=== PATIENT | male | born 1950 | race African-American/Black ===

== ENCOUNTER 2017-06-13 21:25 | Emergency (ER) | payer BC, MEDICARE ==
[2017-06-13] MEDS ORDERED: EPINEPHrine 1 MG/10 ML Abboject SYRINGE ONE (22:00)
[2017-06-13 22:14] LABS: Band 2 % (5-11); Hemoglobin 11.9 g/dL (14.0-18.0); Lymphocytes 17 % (21-51); MDiff Complete? YES; Mean Corpuscular HGB CONC 31.2 g/dL (32.0-36.0); Mean Corpuscular Hemoglobin 28.5 pg (27.0-31.0); Mean Corpuscular Volume 91.3 fl (80.0-94.0); Mean Platelet Volume 9.4 fL (7.4-10.4); Monocytes 1 % (0-10); Neutrophil 80 % (42-75); PLT Morphology Comment Appears Adequate; Platelet Count 254 thou/uL (130-400); RBC Distribution Width 16.8 % (11.5-14.5); Red Blood Cell (RBC) Count 4.19 mill/uL (4.70-6.10); White Blood Cell (WBC) Count 6.8 thou/uL (4.8-10.8)
[2017-06-13 22:29] LABS: Troponin I 5.703 ng/mL (< 0.028)
[2017-06-13] MEDS ORDERED: Lidocaine 1% PF 5 ML VIAL ONE (23:01)
[2017-06-13 23:14] LABS: Albumin 3.1 g/dL (3.4-4.8)
--- NOTE | 2017-06-13 23:14 | RAD ---
CHEST ONE VIEW: 06/13/17 HISTORY: 66-year-old male with history of chest pain. Left ICD. Postop midline sternotomy. Cardiomegaly. Right jugular venous catheter with the tip in the distal superior vena cava. No confluent pneumonia or overt edema. IMPRESSION: Cardiomegaly. Right jugular venous catheter. Left ICD. No acute pulmonary parenchymal disease. No pne umothorax or pleural effusion. POS: [facility]
[2017-06-13 23:15] LABS: Chloride 100 mmol/L (98-107); Potassium 3.8 mmol/L (3.5-5.1); Sodium 136 mmol/L (136-145)
[2017-06-13 23:16] LABS: Calcium 8.9 mg/dL (7.8-10.44); Glucose 218 mg/dL (80-115)
[2017-06-13 23:17] LABS: Globulin 5.1 g/dL (2.4-3.5); Protein, Total 8.2 g/dL (5.8-8.1)
[2017-06-13 23:18] LABS: Anion Gap 14 mmol/L (10-20); Bilirubin, Total 0.6 mg/dL (0.2-1.2); Carbon Dioxide 26 mmol/L (23-31)
[2017-06-13 23:19] LABS: Alkaline Phosphatase 101 U/L (40-150)
[2017-06-13 23:20] LABS: Calc. Creatinine Clearance 0 mL/min (70-130); Estimated GFR-MDRD 32
[2017-06-13 23:21] LABS: BUN (Urea Nitrogen) 32 mg/dL (8.4-25.7)
[2017-06-13 23:22] LABS: ALT (SGPT) 20 U/L (8-55); AST (SGOT) 49 U/L (5-34); CK (CPK) 301 U/L (30-200)
[2017-06-14] MEDS ORDERED: Enoxaparin Sodium 100 MG/ML SYRINGE ONE (00:07)
[2017-06-14] MEDS ORDERED: Piperacillin/Tazobactam 4.5 GM VIAL ONE (00:37)
[2017-06-14 03:16] LABS: Bilirubin Negative (Negative); Blood, Urine Negative (Negative); Clarity CLOUDY (Clear); Glucose, Urine (Dipstick) Negative (Negative); Leukocyte Negative (Negative); Nitrite Negative (Negative); Protein, Urine (Dipstick) 100 mg/dL (Neg-Trace); Specific Gravity, Urine 1.013 (1.002-1.036)
[2017-06-14 03:19] LABS: Bacteria/HPF None Seen HPF (None Seen); Hyaline Casts/LPF 7-10 HYALINE CAST LPF (0-3 Hyaline); Pathc Cast-AUWi Flag 2.32 (0-2.49); RBC/HPF 0-3 HPF (0-3); Squamous Epithelial 0-3 HPF (0-3)
== END 2017-06-14 02:32 | disposition short-term general hospital (02) ==
LOC: ERS 21:25
DX: I21.4 Non-ST elevation (NSTEMI) myocardial infarction (principal); I50.9 Heart failure, unspecified; I48.91 Unspecified atrial fibrillation; E11.9 Type 2 diabetes mellitus without complications; E78.5 Hyperlipidemia, unspecified; I11.0 Hypertensive heart disease with heart failure; J45.909 Unspecified asthma, uncomplicated; Z79.899 Other long term (current) drug therapy
CPT/HCPCS: 36556; 36620; 71045; 80053; 81003; 81015; 82550; 82553; 83605; 83735; 83880; 84484; 85025; 87040; 87086; 87149; 93005; 96361; 96365; 96366; 96368; 96372; 96374; 96375; 96376; J0171; J0282; J1650; J2001; J2543; J3370

== ENCOUNTER 2017-10-22 13:38 | Outpatient (CLI) | payer MEDICARE ==
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
== END 2017-10-22 13:39 | disposition home or self-care (01) ==
LOC: WCC 13:38
PROVIDERS: ATTEND Family Medicine
DX: E11.622 Type 2 diabetes mellitus with other skin ulcer (principal); I87.312 Chronic venous hypertension (idiopathic) with ulcer of left lower extremity; L97.829 Non-pressure chronic ulcer of other part of left lower leg with unspecified severity; I11.9 Hypertensive heart disease without heart failure; I25.10 Atherosclerotic heart disease of native coronary artery without angina pectoris; G47.33 Obstructive sleep apnea (adult) (pediatric); I42.9 Cardiomyopathy, unspecified; H40.9 Unspecified glaucoma; N40.0 Benign prostatic hyperplasia without lower urinary tract symptoms; I48.91 Unspecified atrial fibrillation; J45.909 Unspecified asthma, uncomplicated
CPT/HCPCS: 36416

== ENCOUNTER 2018-02-22 08:43 | Inpatient (IN) | payer MEDICARE ==
[2018-02-22] MEDS ORDERED: Water For Inject, Bacteriostat 30 ML ONE (08:54)
[2018-02-22] MEDS ORDERED: methylPREDNISolone Sod Succ/PF 125 MG/2 ML VIAL ONE (08:54)
[2018-02-22 09:34] LABS: Hemoglobin 11.6 g/dL (14.0-18.0); Mean Corpuscular HGB CONC 31.4 g/dL (32.0-36.0); Mean Corpuscular Hemoglobin 28.6 pg (27.0-31.0); Mean Corpuscular Volume 91.1 fL (78.0-98.0); Mean Platelet Volume 9.4 fL (7.4-10.4); Platelet Count 221 thou/uL (130-400); RBC Distribution Width 15.5 % (11.5-14.5); Red Blood Cell (RBC) Count 4.08 mill/uL (4.70-6.10); White Blood Cell (WBC) Count 4.8 thou/uL (4.8-10.8)
--- NOTE | 2018-02-22 09:35 | RAD ---
CHEST 1 VIEW: Date: 02/22/18 HISTORY: Shortness of breath. COMPARISON: Radiograph dated 06/13/17. FINDINGS: Heart size is enlarged. Moderate left and large right layering pleural effusions. Moderate edema. Multilead AICD/pacer is present. Multiple midline sternotomy wires. IMPRESSION: Large layering right and moderate left side pleural effusions with cardiomegaly and moderate edema alonso ggesting congestive heart failure. POS: [facility]
[2018-02-22 09:47] LABS: ALT (SGPT) 10 U/L (8-55); AST (SGOT) 19 U/L (5-34); Albumin 3.4 g/dL (3.4-4.8); Alkaline Phosphatase 132 U/L (40-150); Anion Gap 17 mmol/L (10-20); BUN (Urea Nitrogen) 15 mg/dL (8.4-25.7); Bilirubin, Total 1.5 mg/dL (0.2-1.2); Calc. Creatinine Clearance 0 mL/min (70-130); Calcium 9.4 mg/dL (7.8-10.44); Carbon Dioxide 31 mmol/L (23-31); Chloride 94 mmol/L (98-107); Estimated GFR-MDRD 45; Globulin 5.2 g/dL (2.4-3.5); Glucose 105 mg/dL (80-115); Protein, Total 8.6 g/dL (5.8-8.1); Sodium 139 mmol/L (136-145)
[2018-02-22 09:53] LABS: #Basophils 0.1 thou/uL (0.0-0.2); #Eosinphils 0.1 thou/uL (0.0-0.7); #Lymphocytes 1.1 thou/uL (1.20-3.40); #Monocytes 0.6 thou/uL (0.11-0.59); %Basophils 1.1 % (0.0-1.0); %Eosinophils 2.8 % (0.0-10.0); %Lymphocytes 22.9 % (21.0-51.0); %Monocytes 11.4 % (0.0-10.0); %Neutrophils 61.8 % (42.0-75.0); Band 1 % (5-11); Eosinophils 4 % (0-10); Hypochromia SLIGHT = 6-15 cells (100X) (0-5/hpf); Lymphocytes 18 % (21-51); MDiff Complete? YES; Monocytes 12 % (0-10); Neutrophil 64 % (42-75); PLT Morphology Comment Appears Adequate; Polychromasia SLIGHT = 2-3 cells (100X) (0-2/hpf); Reactive Lymphocytes 1 % (0-10); Target Cells SLIGHT = 2-5 cells (100X) (0-1/hpf)
[2018-02-22 09:56] LABS: Potassium 2.8 mmol/L (3.5-5.1)
[2018-02-22] MEDS ORDERED: Nitroglycerin 2% Ointment 1 INCH/1 GM Packet ONE (10:17)
[2018-02-22] MEDS ORDERED: Furosemide 40 MG/4 ML VIAL ONE (10:17)
[2018-02-22] MEDS ORDERED: Potassium Chloride 20 MEQ TAB ONE (12:02)
[2018-02-22 12:43] LABS: Troponin I 0.025 ng/mL (< 0.028)
[2018-02-22] MEDS ORDERED: Dextrose 5% in Water 1,000 ML IV PRN (13:50)
[2018-02-22] MEDS ORDERED: Dextrose 50% Abboject 50 ML SYRINGE SLOW IVP PRN (13:50)
[2018-02-22] MEDS ORDERED: Guaifenesin DM 100-10/5 ML UDCUP PO PRN (13:50)
[2018-02-22] MEDS ORDERED: Acetaminophen 325 MG TAB PO PRN (13:50)
[2018-02-22] MEDS ORDERED: Furosemide 40 MG/4 ML VIAL SLOW IVP SCH (14:00)
[2018-02-22] MEDS: Potassium Chloride 20 MEQ TAB PO SCH ×2 (16:46→22:35)
[2018-02-22] MEDS: HumaLOG 300 UNITS/3 ML VIAL SC PRN (17:31)
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
[2018-02-22 20:17] LABS: Troponin I 0.024 ng/mL (< 0.028)
[2018-02-22] MEDS ORDERED: Amiodarone 200 MG TAB PO SCH (21:00)
[2018-02-22] MEDS ORDERED: hydrALAZINE 25 MG TAB PO SCH (21:00)
[2018-02-22] MEDS: Carvedilol 6.25 MG TAB PO SCH (21:29)
[2018-02-22] MEDS: Apixaban 5 MG TAB PO SCH (21:30)
[2018-02-22] MEDS: Famotidine 20 MG TAB PO SCH (21:31)
[2018-02-22] MEDS: Senokot S 8.6-50 MG TAB PO SCH (21:31)
[2018-02-22] MEDS: Simvastatin 20 MG TAB PO SCH (21:32)
[2018-02-22] MEDS: Isosorbide Dinitrate 20 MG TAB PO SCH (21:32)
[2018-02-22 22:01] LABS: Hemoglobin 10.9 g/dL (14.0-18.0); Platelet Count 224 thou/uL (130-400)
--- NOTE | 2018-02-22 22:06 | CON ---
DATE OF CONSULT: 02/22/18 The patient is a 67-year-old gentleman with a history of a severe cardiomyopathy who presents with increasing dyspnea and lower extremity swelling. Patient has a long history of ischemic cardiomyopathy. he underwent coronary bypass surgery in 1976. He is followed at [facility] by Dr. Pham. The patient states he was in his usual state of health when he recently was diagnosed with deep venous thrombosis. He was started on Eliquis. He presents with increasing lower extremity swelling and dyspnea. The patient is noted to be markedly hypertensive. The patient denies having any chest discomfort. PAST MEDICAL HISTORY: 1. Cardiomyopathy. 2. Hypertension. 3. Diabetes mellitus. 4. Chronic renal insufficiency. 5. History of DVT. 6. Dyslipidemia. PAST SURGICAL HISTORY: 1. Coronary bypass graft surgery. 2. AICD placement. SOCIAL HISTORY: Nonsmoker. ALLERGIES: No known drug allergies. MEDICATIONS: Zocor 20 q. h.s., potassium 20 q. day, Lasix 40 q. day, Coreg 6.25 b.i.d., Eliquis 5 b.i.d., Norvasc 5 q. day, Amiodarone 200 b.i.d., Allopurinol 300 q. day and Mag oxide 400 q. day. REVIEW OF SYSTEMS: Ten point system noticeable for increasing weakness and weight gain, otherwise unremarkable. PHYSICAL EXAMINATION: GENERAL: This is an obese gentleman in mild distress with a blood pressure of 202/111. NECK: Showed no jugular venous distention. LUNGS: Crackles in both lung connolly. HEART: Regular rate and rhythm. Normal S1 and S2 with a II/IV systolic murmur. ABDOMEN: Distended. EXTREMITIES: Show severe bilateral edema. VASCULAR: Radial pulses are 2+. NEUROLOGICAL: Nonfocal. LABORATORY RESULTS: White blood count 4.8, hemoglobin 11.6, hematocrit 37.1, platelets 221. Sodium 139, potassium 2.8, chloride 94, bicarbonate 31, BUN 15, creatinine 1.8. Glucose 105. Troponin 0.028. EKG reveals an electronic ventricular pacemaker.. IMPRESSION: 1. Congestive heart failure. 2. History of cardiomyopathy. 3. History of coronary bypass surgery. 4. History of AICD placement. 5. Diabetes mellitus. 6. Renal insufficiency. 7. History of hypertension. 8. Deep venous thrombosis. 9. Morbid obesity. This gentleman presents with congestive heart failure.I would recommend increasing the dose of his Lasix. The patient's blood pressure is markedly elevated. Would recommend adding BiDil to his medical regimen with his chronic renal insufficiency. We will also obtain records of the patient's recent hospitalization and from his economics teacher. We will follow this patient with you through his hospitalization. PRUDENCE
[2018-02-23] MEDS: Potassium Chloride 20 MEQ TAB PO SCH ×3 (05:52→17:51)
[2018-02-23] MEDS: Furosemide 100 MG/10 ML VIAL SLOW IVP SCH ×2 (05:53→13:24)
[2018-02-23 06:08] LABS: #Lymphocytes 0.6 thou/uL (1.20-3.40); #Monocytes 0.2 thou/uL (0.11-0.59); #Neutrophils 2.9 thou/uL (1.40-6.50); %Eosinophils 0.2 % (0.0-10.0); %Lymphocytes 16.5 % (21.0-51.0); %Monocytes 5.1 % (0.0-10.0); %Neutrophils 78.2 % (42.0-75.0); Hemoglobin 11.4 g/dL (14.0-18.0); Mean Corpuscular HGB CONC 30.3 g/dL (32.0-36.0); Mean Corpuscular Hemoglobin 27.7 pg (27.0-31.0); Mean Corpuscular Volume 91.3 fL (78.0-98.0); Mean Platelet Volume 9.7 fL (7.4-10.4); Platelet Count 219 thou/uL (130-400); RBC Distribution Width 15.6 % (11.5-14.5); White Blood Cell (WBC) Count 3.8 thou/uL (4.8-10.8)
[2018-02-23 06:29] LABS: Anion Gap 21 mmol/L (10-20); BUN (Urea Nitrogen) 19 mg/dL (8.4-25.7); Calc. Creatinine Clearance 31 mL/min (70-130); Calcium 9.3 mg/dL (7.8-10.44); Carbon Dioxide 27 mmol/L (23-31); Chloride 96 mmol/L (98-107); Estimated GFR-MDRD 41; Glucose 152 mg/dL (80-115); Sodium 140 mmol/L (136-145)
[2018-02-23] MEDS ORDERED: hydrALAZINE 25 MG TAB PO SCH (08:50)
[2018-02-23] MEDS ORDERED: Spironolactone 25 MG TAB PO SCH (09:00)
[2018-02-23] MEDS: hydrALAZINE 25 MG TAB PO SCH ×3 (09:18→21:50)
[2018-02-23] MEDS: Apixaban 5 MG TAB PO SCH ×2 (09:18→21:50)
[2018-02-23] MEDS: Carvedilol 6.25 MG TAB PO SCH ×2 (09:18→21:51)
[2018-02-23] MEDS: Finasteride 5 MG TAB PO SCH (09:18)
[2018-02-23] MEDS: Lisinopril 2.5 MG TAB PO SCH (09:18)
[2018-02-23] MEDS: Famotidine 20 MG TAB PO SCH ×2 (09:19→21:50)
[2018-02-23] MEDS: Amiodarone 200 MG TAB PO SCH (09:20)
[2018-02-23] MEDS: Senokot S 8.6-50 MG TAB PO SCH ×2 (09:20→21:50)
[2018-02-23] MEDS: Isosorbide Dinitrate 20 MG TAB PO SCH ×3 (09:20→21:51)
--- NOTE | 2018-02-23 11:29 | PDOC.PN ---
- Subjective Encounter Start Date: 02/23/18 Encounter Start Time: 09:15 Subjective: says his breathing is same, no sob or chest pain -: he is not sure if he is making more urine? - Objective Resuscitation Status - Order Detail: 02/22/18 13:45 Resuscitation Status Routine Resuscitation Status: FULL: Full Resuscitation MAR Reviewed: Yes Vital Signs & Weight: Vital Signs (12 hours) Temp Pulse Resp BP BP Pulse Ox 02/23/18 09:20 98.4 F 02/23/18 09:18 71 134/85 02/23/18 07:07 71 14 134/85 100 02/23/18 07:03 90 14 02/23/18 04:18 95 02/23/18 04:00 98.1 F 69 16 154/77 H 98 02/23/18 00:00 98.5 F 77 20 145/74 H 94 L Weight Weight 136 lb 12.8 oz I&O: 02/22/18 02/23/18 02/24/18 06:59 06:59 06:59 Intake Total 1060 Output Total 100 Balance 960 Result Diagrams: 02/23/18 05:12 02/23/18 05:12 Additional Labs: Accuchecks 02/22/18 17:26 POC Glucose 170 H Phys Exam - Physical Examination HEENT: PERRLA, moist MMs Neck: no JVD, supple Respiratory: no wheezing, no rales Cardiovascular: RRR, no significant murmur Gastrointestinal: soft, non-tender, positive bowel sounds Musculoskeletal: pulses present, edema present Neurological: non-focal, moves all 4 limbs Psychiatric: normal affect, A&O x 3 -: has dependent edema over post aspect of thorax, abd and lower extre Dx/Plan (1) Acute exacerbation of CHF (congestive heart failure) Code(s): I50.9 - HEART FAILURE, UNSPECIFIED Status: Acute Qualifiers: Heart failure type: unspecified Qualified Code(s): I50.9 - Heart failure, unspecified (2) Hypertension, uncontrolled Code(s): I10 - ESSENTIAL (PRIMARY) HYPERTENSION Status: Acute (3) Cardiomyopathy Code(s): I42.9 - CARDIOMYOPATHY, UNSPECIFIED Status: Suspected Qualifiers: Cardiomyopathy type: unspecified Qualified Code(s): I42.9 - Cardiomyopathy , unspecified (4) H/O deep venous thrombosis Code(s): Z86.718 - PERSONAL HISTORY OF OTHER VENOUS THROMBOSIS AND EMBOLISM Status: Acute (5) Afib Code(s): I48.91 - UNSPECIFIED ATRIAL FIBRILLATION Status: Chronic Qualifiers: Atrial fibrillation type: paroxysmal Qualified Code(s): I48.0 - Paroxysmal atrial fibrillation (6) Morbid obesity Code(s): E66.01 - MORBID (SEVERE) OBESITY DUE TO EXCESS CALORIES Status: Chronic (7) CKD (chronic kidney disease) stage 3, GFR 30-59 ml/min Code(s): N18.3 - CHRONIC KIDNEY DISEASE, STAGE 3 (MODERATE) Status: Chronic (8) Physical deconditioning Code(s): R53.81 - OTHER MALAISE Status: Chronic (9) DM type 2 (diabetes mellitus, type 2) Status: Chronic Qualifiers: Diabetes mellitus longterm insulin use: without longterm use Diabetes mellitus complication status: with kidney complications Diabetes mellitus complication detail: with chronic kidney disease Chronic kidney disease stage : stage 3 (moderate) Qualified Code(s): E11.22 - Type 2 diabetes mellitus with diabetic chronic kidney disease; N18.3 - Chronic kidney disease, stage 3 ( moderate) - Plan watch for renal function, is on lasix -: has lot of dependent edema over post aspect, counselled to sit up/amb as to -: -lerated, PT to mobilize him -: continue asp, eliquis, coreg, bidil, amiodarone daily -: add lantus 10 u daily for dm, await records from 's office/[employer] * . Review of Systems - Medications/Allergies Allergies/Adverse Reactions: Allergies Allergy/AdvReac Type Severity Reaction Status Date / Time No Known Allergies Allergy Verified 02/22/18 15:19 Medications: Current Medications Acetaminophen (Tylenol) 650 mg PO Q4H PRN PRN Reason: Headache/Fever/Mild Pain (1-3) Albuterol/Ipratropium (Duoneb) 3 ml NEB [id number] [facility] Last Admin: 02/23/18 07:03 Dose: 3 ml Amiodarone HCl (Cordarone) 200 mg PO DAILY [facility] Last Admin: 02/23/18 09:20 Dose: 200 mg Apixaban (Eliquis) 5 mg PO BID [facility] Last Admin: 02/23/18 09:18 Dose: 5 mg Aspirin (Aspirin Chewable) 81 mg PO DAILY [facility] Last Admin: 02/23/18 09:18 Dose: Not Given Carvedilol (Coreg) 6.25 mg PO BID [facility] Last Admin: 02/23/18 09:18 Dose: 6.25 mg Dextrose/Water (Dextrose 50%) 25 gm SLOW IVP PRN PRN PRN Reason: Hypoglycemia Famotidine (Pepcid) 20 mg PO BID [facility] Last Admin: 02/23/18 09:19 Dose: 20 mg Finasteride (Proscar) 5 mg PO DAILY [facility] Last Admin: 02/23/18 09:18 Dose: 5 mg Furosemide (Lasix) 80 mg SLOW IVP 0600,1400 [facility] Last Admin: 02/23/18 05:53 Dose: 80 mg Glucagon (Glucagon) 1 mg IM PRN PRN PRN Reason: Hypoglycemia Guaifenesin/Dextromethorphan (Robitussin Dm) 15 ml PO Q4H PRN PRN Reason: Cough Hydralazine HCl (Apresoline) 50 mg PO TID [facility] Last Admin: 02/23/18 09:18 Dose: 50 mg Dextrose/Water (D5w) 1,000 mls @ 0 mls/hr IV .Q0M PRN PRN Reason: Hypoglycemia Insulin Human Lispro (Humalog) 0 units SC .MODERATE SLIDING SC PRN PRN Reason: Moderate Correctional Scale Last Admin: 02/22/18 17:31 Dose: 2 unit Insulin Human Lispro (Humalog) 0 units SC .BEDTIME SLIDING SC PRN PRN Reason: Bedtime Correctional Scale Isosorbide Dinitrate (Isordil) 20 mg PO TID [facility] Last Admin: 02/23/18 09:20 Dose: 20 mg Lisinopril (Zestril) 2.5 mg PO DAILY [facility] Last Admin: 02/23/18 09:18 Dose: 2.5 mg Potassium Chloride (K-Dur) 40 meq PO Q6H [facility] Stop: 02/23/18 17:01 Last Admin: 02/23/18 05:52 Dose: 40 meq Senna/Docusate Sodium (Senokot S) 2 tab PO BID [facility] Last Admin: 02/23/18 09:20 Dose: Not Given Simvastatin (Zocor) 20 mg PO HS [facility] Last Admin: 02/22/18 21:32 Dose: 20 mg
[2018-02-23] MEDS: HumaLOG 300 UNITS/3 ML VIAL SC PRN ×3 (11:48→21:46)
--- NOTE | 2018-02-23 13:52 | EKG ---
Test Reason : ER INDICATION Blood Pressure : / mmHG Vent. Rate : 073 BPM Atrial Rate : 070 BPM P-R Int : 000 ms QRS Dur : 182 ms QT Int : 554 ms P-R-T Axes : 000 262 079 degrees QTc Int : 610 ms Electronic ventricular pacemaker Confirmed by FELIX GAMEZ, FRENCH ([id number]), advertising editor RUDDY GOLDSMITH ([id number]) on 02/23/2018 1:51:57 PM Referred By: Confirmed By:FRENCH WASHINGTON MD
[2018-02-23] MEDS: Simvastatin 20 MG TAB PO SCH (21:51)
[2018-02-24 05:40] LABS: Anion Gap 13 mmol/L (10-20); BUN (Urea Nitrogen) 25 mg/dL (8.4-25.7); Calc. Creatinine Clearance 60 mL/min (70-130); Carbon Dioxide 32 mmol/L (23-31); Chloride 97 mmol/L (98-107); Estimated GFR-MDRD 35; Glucose 110 mg/dL (80-115); Potassium 4.7 mmol/L (3.5-5.1); Sodium 137 mmol/L (136-145)
[2018-02-24] MEDS: Furosemide 100 MG/10 ML VIAL SLOW IVP SCH ×2 (06:17→14:39)
[2018-02-24] MEDS: Finasteride 5 MG TAB PO SCH (09:49)
[2018-02-24] MEDS: Carvedilol 6.25 MG TAB PO SCH ×2 (09:49→20:05)
[2018-02-24] MEDS: Apixaban 5 MG TAB PO SCH (09:49)
[2018-02-24] MEDS: Lisinopril 2.5 MG TAB PO SCH (09:49)
[2018-02-24] MEDS: Amiodarone 200 MG TAB PO SCH (09:49)
[2018-02-24] MEDS: Isosorbide Dinitrate 20 MG TAB PO SCH ×3 (09:50→20:05)
[2018-02-24] MEDS: Senokot S 8.6-50 MG TAB PO SCH ×2 (09:50→20:05)
[2018-02-24] MEDS: Famotidine 20 MG TAB PO SCH ×2 (09:50→20:05)
[2018-02-24] MEDS: hydrALAZINE 25 MG TAB PO SCH ×3 (09:50→20:06)
[2018-02-24] MEDS: Insulin Glargine 10 UNITS in Pre-Filled Syringe 1 EACH SC SCH (09:51)
--- NOTE | 2018-02-24 12:38 | PDOC.PN ---
- Subjective Encounter Start Date: 02/24/18 Encounter Start Time: 12:37 Subjective: complaining of SOB - Objective Resuscitation Status - Order Detail: 02/22/18 13:45 Resuscitation Status Routine Resuscitation Status: FULL: Full Resuscitation MAR Reviewed: Yes Vital Signs & Weight: Vital Signs (12 hours) Temp Pulse Resp BP BP Pulse Ox 02/24/18 09:49 133/80 02/24/18 07:57 97.4 F L 69 20 129/79 95 02/24/18 06:36 80 14 02/24/18 03:13 97.9 F 80 18 123/78 98 02/24/18 02:15 96 Weight Weight 304 lb 7.334 oz I&O: 02/23/18 02/24/18 02/25/18 06:59 06:59 06:59 Intake Total 1060 550 Output Total 100 0 Balance 960 550 Result Diagrams: 02/23/18 05:12 02/24/18 05:03 Additional Labs: Accuchecks 02/24/18 02/24/18 02/23/18 11:24 05:48 20:45 POC Glucose 140 H 116 H 215 H 02/23/18 02/23/18 02/22/18 17:15 05:36 20:14 POC Glucose 188 H 150 H 143 H Phys Exam - Physical Examination HEENT: PERRLA, moist MMs, sclera anicteric, TM's clear, oral pharynx no lesions , 2+ tonsils Neck: no nodes, no JVD, supple, full ROM COARSE BREATH SOUNDS, USING OF ACCESSORY MUSCLES, NC OXYGEN Cardiovascular: irregular + mUMUR Gastrointestinal: soft, non-tender, no distention, positive bowel sounds ++ EDEMATOUS LE Neurological: non-focal, normal sensation, moves all 4 limbs Deviation from normal: CHRONIC STATSIS CHANGES B/L LE Dx/Plan (1) Acute exacerbation of CHF (congestive heart failure) Code(s): I50.9 - HEART FAILURE, UNSPECIFIED Status: Acute Qualifiers: Heart failure type: systolic Qualified Code(s): I50.23 - Acute on chronic systolic (congestive) heart failure Comment: Continue lasix, monitor for raising creatinine (2) H/O deep venous thrombosis Code(s): Z86.718 - PERSONAL HISTORY OF OTHER VENOUS THROMBOSIS AND EMBOLISM Status: Acute Comment: continue AC (3) Hypertension, uncontrolled Code(s): I10 - ESSENTIAL (PRIMARY) HYPERTENSION Status: Acute Comment: CONTINUE HOME MEDS (4) Afib Code(s): I48.91 - UNSPECIFIED ATRIAL FIBRILLATION Status: Chronic Qualifiers: Atrial fibrillation type: paroxysmal Qualified Code(s): I48.0 - Paroxysmal atrial fibrillation (5) CKD (chronic kidney disease) stage 3, GFR 30-59 ml/min Code(s): N18.3 - CHRONIC KIDNEY DISEASE, STAGE 3 (MODERATE) Status: Chronic (6) DM type 2 (diabetes mellitus, type 2) Status: Chronic Qualifiers: Diabetes mellitus oil heaterman insulin use: without oil heaterman use Diabetes mellitus complication status: with kidney complications Diabetes mellitus complication detail: with chronic kidney disease Chronic kidney disease stage : stage 3 (moderate) Qualified Code(s): E11.22 - Type 2 diabetes mellitus with diabetic chronic kidney disease; N18.3 - Chronic kidney disease, stage 3 ( moderate) Comment: continue to monitor creatinine with diuresis (7) Morbid obesity Code(s): E66.01 - MORBID (SEVERE) OBESITY DUE TO EXCESS CALORIES Status: Chronic (8) Physical deconditioning Code(s): R53.81 - OTHER MALAISE Status: Chronic Comment: PT/OT, patient may need to go back to rehab. - Plan cont current plan of care, PT/OT, director of social services, respiratory therapy * .
[2018-02-24] MEDS: Simvastatin 20 MG TAB PO SCH (20:05)
[2018-02-24 23:08] LABS: Hemoglobin 9.9 g/dL (14.0-18.0); Platelet Count 196 thou/uL (130-400)
[2018-02-25] MEDS: Furosemide 100 MG/10 ML VIAL SLOW IVP SCH ×2 (05:27→14:43)
[2018-02-25 05:46] LABS: Anion Gap 14 mmol/L (10-20); BUN (Urea Nitrogen) 27 mg/dL (8.4-25.7); Calc. Creatinine Clearance 62 mL/min (70-130); Carbon Dioxide 29 mmol/L (23-31); Chloride 96 mmol/L (98-107); Estimated GFR-MDRD 36; Glucose 125 mg/dL (80-115); Potassium 4.2 mmol/L (3.5-5.1); Sodium 135 mmol/L (136-145)
--- NOTE | 2018-02-25 08:42 | PDOC.PN ---
- Subjective Encounter Start Date: 02/25/18 Encounter Start Time: 14:52 Subjective: Shortness of breath, continued diuresis - Objective Resuscitation Status - Order Detail: 02/22/18 13:45 Resuscitation Status Routine Resuscitation Status: FULL: Full Resuscitation MAR Reviewed: Yes Vital Signs & Weight: Vital Signs (12 hours) Temp Pulse Resp BP Pulse Ox 02/25/18 07:34 98.0 F 69 19 146/85 H 96 02/25/18 06:41 97 02/25/18 06:40 68 20 97 02/25/18 03:15 97.9 F 70 24 H 153/92 H 99 02/25/18 00:02 65 16 96 02/24/18 23:52 97.7 F 83 22 H 140/74 93 L 02/24/18 21:00 95 Weight Weight 308 lb 13.882 oz I&O: 02/24/18 02/25/18 02/26/18 06:59 06:59 06:59 Intake Total 550 1040 Output Total 0 Balance 550 1040 Result Diagrams: 02/24/18 22:12 02/25/18 04:51 Additional Labs: Accuchecks 02/25/18 02/24/18 02/24/18 05:12 20:09 17:31 POC Glucose 154 H 189 H 166 H 02/24/18 11:24 POC Glucose 140 H Phys Exam - Physical Examination HEENT: PERRLA, moist MMs, sclera anicteric, TM's clear, oral pharynx no lesions , 2+ tonsils Neck: no nodes, no JVD, supple, full ROM scattered wheezes +murmur Gastrointestinal: soft, non-tender Musculoskeletal: edema present significant LE edema Psychiatric: normal affect, A&O x 3 Deviation from normal: chronic venostasis of the LE B/L Dx/Plan (1) Acute exacerbation of CHF (congestive heart failure) Code(s): I50.9 - HEART FAILURE, UNSPECIFIED Status: Acute Qualifiers: Heart failure type: systolic Qualified Code(s): I50.23 - Acute on chronic systolic (congestive) heart failure Comment: Continue lasix, monitor for raising creatinine (2) H/O deep venous thrombosis Code(s): Z86.718 - PERSONAL HISTORY OF OTHER VENOUS THROMBOSIS AND EMBOLISM Status: Acute Comment: continue AC (3) Hypertension, uncontrolled Code(s): I10 - ESSENTIAL (PRIMARY) HYPERTENSION Status: Acute Comment: CONTINUE HOME MEDS (4) Afib Code(s): I48.91 - UNSPECIFIED ATRIAL FIBRILLATION Status: Chronic Qualifiers: Atrial fibrillation type: paroxysmal Qualified Code(s): I48.0 - Paroxysmal atrial fibrillation (5) CKD (chronic kidney disease) stage 3, GFR 30-59 ml/min Code(s): N18.3 - CHRONIC KIDNEY DISEASE, STAGE 3 (MODERATE) Status: Chronic (6) DM type 2 (diabetes mellitus, type 2) Status: Chronic Qualifiers: Diabetes mellitus roasterman insulin use: without nursing home use Diabetes mellitus complication status: with kidney complications Diabetes mellitus complication detail: with chronic kidney disease Chronic kidney disease stage : stage 3 (moderate) Qualified Code(s): E11.22 - Type 2 diabetes mellitus with diabetic chronic kidney disease; N18.3 - Chronic kidney disease, stage 3 ( moderate) Comment: continue to monitor creatinine with diuresis (7) Morbid obesity Code(s): E66.01 - MORBID (SEVERE) OBESITY DUE TO EXCESS CALORIES Status: Chronic (8) Physical deconditioning Code(s): R53.81 - OTHER MALAISE Status: Chronic Comment: PT/OT, patient may need to go back to rehab. (9) Pleural effusion Code(s): J90 - PLEURAL EFFUSION, NOT ELSEWHERE CLASSIFIED Status: Acute (10) Pulmonary hypertension Code(s): I27.20 - PULMONARY HYPERTENSION, UNSPECIFIED Status: Acute - Plan cont current plan of care, respiratory therapy * .
[2018-02-25] MEDS: Senokot S 8.6-50 MG TAB PO SCH ×2 (09:35→21:18)
[2018-02-25] MEDS: Lisinopril 2.5 MG TAB PO SCH (09:35)
[2018-02-25] MEDS: Famotidine 20 MG TAB PO SCH ×2 (09:35→21:19)
[2018-02-25] MEDS: hydrALAZINE 25 MG TAB PO SCH ×3 (09:36→21:18)
[2018-02-25] MEDS: Insulin Glargine 10 UNITS in Pre-Filled Syringe 1 EACH SC SCH (09:36)
[2018-02-25] MEDS: Finasteride 5 MG TAB PO SCH (09:36)
[2018-02-25] MEDS: Amiodarone 200 MG TAB PO SCH (09:36)
[2018-02-25] MEDS: Isosorbide Dinitrate 20 MG TAB PO SCH ×3 (09:36→21:18)
[2018-02-25] MEDS: Carvedilol 6.25 MG TAB PO SCH ×2 (09:36→21:19)
[2018-02-25] MEDS: Simvastatin 20 MG TAB PO SCH (21:18)
[2018-02-26] MEDS: hydrALAZINE 20 MG/ML VIAL SLOW IVP PRN ×2 (00:50→03:50)
[2018-02-26 05:12] LABS: Hemoglobin 10.8 g/dL (14.0-18.0); Platelet Count 184 thou/uL (130-400)
[2018-02-26] MEDS: Furosemide 100 MG/10 ML VIAL SLOW IVP SCH (06:24)
[2018-02-26 06:53] LABS: Calcium 9.3 mg/dL (7.8-10.44); Chloride 97 mmol/L (98-107); Glucose 98 mg/dL (80-115); Potassium 4.2 mmol/L (3.5-5.1); Sodium 139 mmol/L (136-145)
[2018-02-26 06:55] LABS: Anion Gap 22 mmol/L (10-20); Carbon Dioxide 24 mmol/L (23-31)
[2018-02-26 06:57] LABS: Calc. Creatinine Clearance 67 mL/min (70-130); Estimated GFR-MDRD 40
[2018-02-26 06:58] LABS: BUN (Urea Nitrogen) 25 mg/dL (8.4-25.7)
[2018-02-26] MEDS: Insulin Glargine 10 UNITS in Pre-Filled Syringe 1 EACH SC SCH (08:52)
[2018-02-26] MEDS: Senokot S 8.6-50 MG TAB PO SCH ×2 (08:53→20:50)
[2018-02-26] MEDS: hydrALAZINE 25 MG TAB PO SCH ×3 (08:53→20:50)
[2018-02-26] MEDS: Isosorbide Dinitrate 20 MG TAB PO SCH ×3 (08:54→20:50)
[2018-02-26] MEDS: Lisinopril 2.5 MG TAB PO SCH (08:54)
[2018-02-26] MEDS: Amiodarone 200 MG TAB PO SCH (08:54)
[2018-02-26] MEDS: Famotidine 20 MG TAB PO SCH ×2 (08:54→20:50)
[2018-02-26] MEDS: Finasteride 5 MG TAB PO SCH (08:54)
[2018-02-26] MEDS: Carvedilol 6.25 MG TAB PO SCH ×2 (08:54→20:50)
[2018-02-26] MEDS: Furosemide 80 MG TAB PO SCH ×2 (09:58→13:16)
[2018-02-26] MEDS: Apixaban 5 MG TAB PO SCH ×2 (09:58→20:51)
--- NOTE | 2018-02-26 16:48 | PRG ---
DATE OF SERVICE: 02/26/2018 SUBJECTIVE: The patient was seen and examined at bedside. He is complaining about some shortness of breath and inability to sit up in bed. There was no any unexpected events over night. OBJECTIVE: VITAL SIGNS: Blood pressure is 158/92, pulse is 65, respiratory rate is 22, O2 saturation is 96% on 2 L by nasal cannula, and temperature is 97.7. HEENT: Head is atraumatic and normocephalic. Eyes are PERRLA. Sclerae are nonicteric. Conjunctivae palish. Oral mucosa is moist. NECK: Supple. JVD 1+. LUNGS: Breath sounds significantly diminished at both bases with few crackles bilaterally. Dullness on percussion at both bases. HEART: S1 and S2 distant. No S3. No S4. ABDOMEN: Soft, obese, and nontender. Bowel sounds are present. No organomegaly. EXTREMITIES: 3+ peripheral edema, similar bilaterally. NEUROLOGIC: He is able to move his all four extremities. There is no any focal deficits. LABORATORY DATA: Labs showed hemoglobin of 10.8, hematocrit 35.1, and platelet count 184,000. Sodium of 139, potassium 4.2, chloride 97, CO2 of 24, BUN 25, creatinine 2.0. The rest of chemistry within normal limits. Glycemia is ranging from 78-154. IMPRESSION: 1. [id number] congestive heart failure. 2. Hypertension, uncontrolled. 3. Atrial fibrillation, chronic. 4. Chronic kidney disease. 5. Diabetes mellitus. 6. Morbid obesity. 7. Physical deconditioning. 8. Pleural effusion, bilateral. 9. Pulmonary hypertension. PLAN: Plan is to obtain his chest x-ray tomorrow morning. Continue diuresis. We will try to increase his blood pressure medications to get systolic blood pressure under better control. I will increase his lisinopril to 5 mg daily. He will continue his PT and OT, will continue anticoagulation and amiodarone. Job ID: [id number]
[2018-02-26] MEDS: Lisinopril 5 MG TAB PO SCH (20:51)
[2018-02-26] MEDS: Simvastatin 20 MG TAB PO SCH (20:51)
--- NOTE | 2018-02-27 08:22 | RAD ---
FRONTAL RADIOGRAPH CHEST PORTABLE UPRIGHT: 02/27/2018 HISTORY: Congestive heart failure. COMPARISON: 02/22/2018 FINDINGS: Midline sternotomy wires and multilead transvenous AICD again noted. Cardiac silhouette is enlarged. There is pulmonary vascular congestion with bilateral perihilar inte rstitial prominence. Increased pleural and parenchymal opacity in the left base suggests left lower lobe consolidation/collapse and/or small left pleural effusion, stable. There is hazy increased dens ity throughout the right hemithorax, suggesting an enlarging right pneumothorax. Underlying perihila r and basilar air space disease is suspected. IMPRESSION: Bilateral pleural and parenchymal opacity, right greater than left, worsened on the right. Findings may signify pulmonary edema with bilateral pleural effusions and/or infectious pneumonitis. POS: [facility]
[2018-02-27] MEDS: Apixaban 5 MG TAB PO SCH ×2 (09:32→21:21)
[2018-02-27] MEDS: Isosorbide Dinitrate 20 MG TAB PO SCH ×3 (09:32→21:22)
[2018-02-27] MEDS: Senokot S 8.6-50 MG TAB PO SCH ×2 (09:32→21:22)
[2018-02-27] MEDS: Finasteride 5 MG TAB PO SCH (09:32)
[2018-02-27] MEDS: hydrALAZINE 25 MG TAB PO SCH ×3 (09:32→21:21)
[2018-02-27] MEDS: Carvedilol 6.25 MG TAB PO SCH ×2 (09:33→21:22)
[2018-02-27] MEDS: Amiodarone 200 MG TAB PO SCH (09:33)
[2018-02-27] MEDS: Lisinopril 5 MG TAB PO SCH ×2 (09:33→21:22)
[2018-02-27] MEDS: Famotidine 20 MG TAB PO SCH ×2 (09:34→21:22)
[2018-02-27] MEDS: Insulin Glargine 10 UNITS in Pre-Filled Syringe 1 EACH SC SCH (09:34)
[2018-02-27] MEDS ORDERED: Metolazone 5 MG TAB PO SCH (10:00)
[2018-02-27] MEDS ORDERED: Furosemide 100 MG/10 ML VIAL SLOW IVP SCH (10:00)
[2018-02-27] MEDS ORDERED: Bisacodyl 5 MG TAB PO PRN (11:33)
[2018-02-27 11:51] LABS: Anion Gap 16 mmol/L (10-20); BUN (Urea Nitrogen) 25 mg/dL (8.4-25.7); Calc. Creatinine Clearance 68 mL/min (70-130); Calcium 9.4 mg/dL (7.8-10.44); Carbon Dioxide 30 mmol/L (23-31); Chloride 95 mmol/L (98-107); Estimated GFR-MDRD 42; Glucose 85 mg/dL (80-115); Potassium 4.3 mmol/L (3.5-5.1); Sodium 137 mmol/L (136-145)
--- NOTE | 2018-02-27 12:34 | PRG ---
DATE OF SERVICE: 02/27/2018 SUBJECTIVE: The patient was seen and examined at bedside. He is complaining about lack of appetite and not having bowel movements for several days. OBJECTIVE: VITAL SIGNS: Blood pressure is 158/83, pulse is 68, respiratory rate is 18, temperature is 98.3, and O2 saturation is 99% on 3 L by nasal cannula. His input and output could not be adequately assessed since he uses the diaper, but his weight is down to 298 pounds and 1.6 ounces on this morning that is down from 308. HEENT: Head is atraumatic and normocephalic. Eyes are PERRLA. Sclerae nonicteric. Conjunctivae palish. Oral mucosa is slightly dry. NECK: Supple. LUNGS: Breath sounds diminished at both bases, especially over the right lung with crackles present bilaterally at both bases. No wheezing. HEART: S1 and S2 distant. No S3. No S4. ABDOMEN: Obese, soft, and nontender. EXTREMITIES: 3+ peripheral edema similar bilaterally on the lower extremities. NEUROLOGICAL: He follows my commands. He moves his all four extremities. LABORATORY DATA: Glycemia is ranging from 93 to 107. Chest x-ray showed large right pleural effusion and some pleural effusion on the left side too. IMPRESSION: 1. Congestive heart failure exacerbation, acute on chronic. 2. Hypertension, still not controlled. 3. Atrial fibrillation, chronic. 4. Chronic kidney disease. 5. Diabetes mellitus. 6. Morbid obesity. 7. Physical deconditioning, basically bedridden patient. 8. Bilateral pleural effusion. 9. Pulmonary hypertension. PLAN: Nutrition Teacher started the patient on metolazone along with his IV Lasix. We will check his BMP tomorrow morning. We will start him on Dulcolax since he did not have any bowel movements recently and multivitamin for lack of appetite. Job ID: [id number]
[2018-02-27] MEDS: Furosemide 100 MG/10 ML VIAL SLOW IVP SCH (16:20)
[2018-02-27] MEDS: Simvastatin 20 MG TAB PO SCH (21:21)
[2018-02-27] MEDS ORDERED: Labetalol HCl 100 MG/20 ML VIAL ONE (23:20)
[2018-02-28] MEDS: Furosemide 100 MG/10 ML VIAL SLOW IVP SCH ×2 (05:44→14:25)
[2018-02-28 05:45] LABS: Anion Gap 15 mmol/L (10-20); BUN (Urea Nitrogen) 27 mg/dL (8.4-25.7); Calc. Creatinine Clearance 65 mL/min (70-130); Calcium 9.5 mg/dL (7.8-10.44); Carbon Dioxide 34 mmol/L (23-31); Chloride 93 mmol/L (98-107); Estimated GFR-MDRD 41; Glucose 100 mg/dL (80-115); Potassium 3.6 mmol/L (3.5-5.1); Sodium 138 mmol/L (136-145)
[2018-02-28] MEDS: Senokot S 8.6-50 MG TAB PO SCH ×2 (09:28→21:23)
[2018-02-28] MEDS: Amiodarone 200 MG TAB PO SCH (09:28)
[2018-02-28] MEDS: Multivitamin W/ Minerals 1 TAB PO SCH (09:28)
[2018-02-28] MEDS: hydrALAZINE 25 MG TAB PO SCH ×3 (09:28→21:22)
[2018-02-28] MEDS: Finasteride 5 MG TAB PO SCH (09:29)
[2018-02-28] MEDS: Metolazone 5 MG TAB PO SCH (09:29)
[2018-02-28] MEDS: Isosorbide Dinitrate 20 MG TAB PO SCH ×3 (09:29→21:22)
[2018-02-28] MEDS: Carvedilol 6.25 MG TAB PO SCH ×2 (09:29→21:21)
[2018-02-28] MEDS: Apixaban 5 MG TAB PO SCH ×2 (09:30→21:21)
[2018-02-28] MEDS: Famotidine 20 MG TAB PO SCH ×2 (09:30→21:22)
[2018-02-28] MEDS: Insulin Glargine 10 UNITS in Pre-Filled Syringe 1 EACH SC SCH (09:30)
[2018-02-28] MEDS: Lisinopril 5 MG TAB PO SCH ×2 (09:30→21:22)
--- NOTE | 2018-02-28 13:43 | PDOC.PN ---
- Subjective Encounter Start Date: 02/28/18 Encounter Start Time: 13:42 Subjective: feeling better, breathing better, but cannot walk with his pedal edema - Objective Resuscitation Status - Order Detail: 02/22/18 13:45 Resuscitation Status Routine Resuscitation Status: FULL: Full Resuscitation MAR Reviewed: Yes Vital Signs & Weight: Vital Signs (12 hours) Temp Pulse Resp BP BP Pulse Ox 02/28/18 11:30 73 16 95 02/28/18 09:28 80 147/74 H 02/28/18 08:13 98.7 F 74 20 145/74 H 94 L 02/28/18 06:04 69 18 95 02/28/18 04:00 97.7 F 72 28 H 117/68 96 02/28/18 02:07 74 Weight Weight 286 lb 11.2 oz I&O: 02/27/18 02/28/18 03/01/18 06:59 06:59 06:59 Intake Total 960 Output Total 150 Balance 960 -150 Result Diagrams: 02/26/18 04:46 02/28/18 05:08 Additional Labs: Accuchecks 02/28/18 02/28/18 02/27/18 11:37 06:00 20:23 POC Glucose 182 H 100 137 H 02/27/18 16:58 POC Glucose 104 Phys Exam - Physical Examination HEENT: PERRLA, moist MMs, sclera anicteric, TM's clear, oral pharynx no lesions , 2+ tonsils Neck: no nodes, no JVD, supple, full ROM Coare breath sounds Cardiovascular: RRR, no significant murmur Gastrointestinal: soft, non-tender, no distention, positive bowel sounds Musculoskeletal: edema present Neurological: non-focal, normal sensation, moves all 4 limbs Lymphatic: no nodes Psychiatric: normal affect, A&O x 3 Deviation from normal: chronic venous stasis pigmentation in the B/L LE Dx/Plan (1) Acute exacerbation of CHF (congestive heart failure) Code(s): I50.9 - HEART FAILURE, UNSPECIFIED Status: Acute Qualifiers: Heart failure type: systolic Qualified Code(s): I50.23 - Acute on chronic systolic (congestive) heart failure Comment: Continue lasix, monitor for raising creatinine (2) H/O deep venous thrombosis Code(s): Z86.718 - PERSONAL HISTORY OF OTHER VENOUS THROMBOSIS AND EMBOLISM Status: Acute Comment: continue AC (3) Hypertension, uncontrolled Code(s): I10 - ESSENTIAL (PRIMARY) HYPERTENSION Status: Acute Comment: CONTINUE HOME MEDS (4) Afib Code(s): I48.91 - UNSPECIFIED ATRIAL FIBRILLATION Status: Chronic Qualifiers: Atrial fibrillation type: paroxysmal Qualified Code(s): I48.0 - Paroxysmal atrial fibrillation (5) CKD (chronic kidney disease) stage 3, GFR 30-59 ml/min Code(s): N18.3 - CHRONIC KIDNEY DISEASE, STAGE 3 (MODERATE) Status: Chronic (6) DM type 2 (diabetes mellitus, type 2) Status: Chronic Qualifiers: Diabetes mellitus jail insulin use: without long term care administrator use Diabetes mellitus complication status: with kidney complications Diabetes mellitus complication detail: with chronic kidney disease Chronic kidney disease stage : stage 3 (moderate) Qualified Code(s): E11.22 - Type 2 diabetes mellitus with diabetic chronic kidney disease; N18.3 - Chronic kidney disease, stage 3 ( moderate) Comment: continue to monitor creatinine with diuresis (7) Morbid obesity Code(s): E66.01 - MORBID (SEVERE) OBESITY DUE TO EXCESS CALORIES Status: Chronic (8) Physical deconditioning Code(s): R53.81 - OTHER MALAISE Status: Chronic Comment: PT/OT, patient may need to go back to rehab. (9) Pleural effusion Code(s): J90 - PLEURAL EFFUSION, NOT ELSEWHERE CLASSIFIED Status: Acute (10) Pulmonary hypertension Code(s): I27.20 - PULMONARY HYPERTENSION, UNSPECIFIED Status: Acute - Plan cont current plan of care, DVT proph w/lovenox * .
[2018-02-28] MEDS: Simvastatin 20 MG TAB PO SCH (21:23)
[2018-02-28 22:07] LABS: Hemoglobin 11.6 g/dL (14.0-18.0); Platelet Count 186 thou/uL (130-400)
[2018-03-01 05:46] LABS: Anion Gap 15 mmol/L (10-20); BUN (Urea Nitrogen) 28 mg/dL (8.4-25.7); Calc. Creatinine Clearance 60 mL/min (70-130); Calcium 9.1 mg/dL (7.8-10.44); Carbon Dioxide 34 mmol/L (23-31); Chloride 91 mmol/L (98-107); Estimated GFR-MDRD 38; Glucose 125 mg/dL (80-115); Potassium 3.7 mmol/L (3.5-5.1); Sodium 136 mmol/L (136-145)
[2018-03-01] MEDS: Furosemide 100 MG/10 ML VIAL SLOW IVP SCH ×2 (05:52→14:11)
[2018-03-01] MEDS: hydrALAZINE 25 MG TAB PO SCH ×3 (09:50→21:25)
[2018-03-01] MEDS: Senokot S 8.6-50 MG TAB PO SCH ×2 (09:51→21:27)
[2018-03-01] MEDS: Finasteride 5 MG TAB PO SCH (09:51)
[2018-03-01] MEDS: Lisinopril 5 MG TAB PO SCH ×2 (09:51→21:27)
[2018-03-01] MEDS: Multivitamin W/ Minerals 1 TAB PO SCH (09:52)
[2018-03-01] MEDS: Carvedilol 6.25 MG TAB PO SCH ×2 (09:52→21:26)
[2018-03-01] MEDS: Apixaban 5 MG TAB PO SCH ×2 (09:52→21:26)
[2018-03-01] MEDS: Metolazone 5 MG TAB PO SCH (09:52)
[2018-03-01] MEDS: Amiodarone 200 MG TAB PO SCH (09:52)
[2018-03-01] MEDS: Famotidine 20 MG TAB PO SCH ×2 (09:53→21:26)
[2018-03-01] MEDS: Insulin Glargine 10 UNITS in Pre-Filled Syringe 1 EACH SC SCH (09:53)
[2018-03-01] MEDS: Isosorbide Dinitrate 20 MG TAB PO SCH ×3 (09:53→21:26)
--- NOTE | 2018-03-01 10:41 | RAD ---
CHEST ONE VIEW: HISTORY: Respiratory distress and shortness of breath. COMPARISON: 02/27/2018 FINDINGS: Large layering right effusion. Mild pulmonary venous congestion. Mild cardiomegaly. Small left eff usion. No pneumothorax. No acute osseous abnormality. IMPRESSION: Similar examination of the chest. POS: [facility]
--- NOTE | 2018-03-01 15:22 | PDOC.PN ---
- Subjective Encounter Start Date: 03/01/18 Encounter Start Time: 15:20 Subjective: Not tolerating any physical activity, cannot even lift his legs when on bed -: Continued SOB - Objective Resuscitation Status - Order Detail: 02/22/18 13:45 Resuscitation Status Routine Resuscitation Status: FULL: Full Resuscitation MAR Reviewed: Yes Vital Signs & Weight: Vital Signs (12 hours) Temp Pulse Pulse Resp BP BP BP 03/01/18 15:05 98.6 F 69 20 138/78 03/01/18 14:11 64 144/77 H 03/01/18 11:30 98.2 F 65 20 148/88 H 03/01/18 09:50 78 148/84 H 03/01/18 09:06 71 142/82 H 03/01/18 07:48 98.1 F 65 22 H 160/91 H 03/01/18 06:06 75 18 03/01/18 04:29 97.5 F L 63 20 124/74 Pulse Ox Pulse Ox 03/01/18 15:05 95 03/01/18 14:11 03/01/18 11:30 95 03/01/18 09:50 03/01/18 09:06 93 L 03/01/18 07:48 94 L 03/01/18 06:06 95 03/01/18 04:29 100 Weight Weight 286 lb 8 oz I&O: 02/28/18 03/01/18 03/02/18 06:59 06:59 06:59 Intake Total 1000 Output Total 150 Balance -150 1000 Result Diagrams: 02/28/18 21:57 03/01/18 05:05 Additional Labs: Accuchecks 03/01/18 03/01/18 02/28/18 11:29 05:58 20:56 POC Glucose 164 H 126 H 133 H 02/28/18 16:53 POC Glucose 151 H Phys Exam - Physical Examination HEENT: PERRLA, moist MMs, sclera anicteric, TM's clear, oral pharynx no lesions , 2+ tonsils Neck: no nodes, no JVD, supple, full ROM +COARSE BREATH SOUNDS Cardiovascular: RRR, no significant murmur Gastrointestinal: soft, non-tender, no distention Musculoskeletal: edema present +++ LARGE PEDAL PITTING EDEMA Psychiatric: normal affect, A&O x 3 Dx/Plan (1) Acute exacerbation of CHF (congestive heart failure) Code(s): I50.9 - HEART FAILURE, UNSPECIFIED Status: Acute Qualifiers: Heart failure type: systolic Qualified Code(s): I50.23 - Acute on chronic systolic (congestive) heart failure Comment: Continue lasix, monitor for raising creatinine (2) H/O deep venous thrombosis Code(s): Z86.718 - PERSONAL HISTORY OF OTHER VENOUS THROMBOSIS AND EMBOLISM Status: Acute Comment: continue AC (3) Hypertension, uncontrolled Code(s): I10 - ESSENTIAL (PRIMARY) HYPERTENSION Status: Acute Comment: CONTINUE HOME MEDS (4) Afib Code(s): I48.91 - UNSPECIFIED ATRIAL FIBRILLATION Status: Chronic Qualifiers: Atrial fibrillation type: paroxysmal Qualified Code(s): I48.0 - Paroxysmal atrial fibrillation (5) CKD (chronic kidney disease) stage 3, GFR 30-59 ml/min Code(s): N18.3 - CHRONIC KIDNEY DISEASE, STAGE 3 (MODERATE) Status: Chronic (6) DM type 2 (diabetes mellitus, type 2) Status: Chronic Qualifiers: Diabetes mellitus cafeteria or lunchroom checker insulin use: without residential use Diabetes mellitus complication status: with kidney complications Diabetes mellitus complication detail: with chronic kidney disease Chronic kidney disease stage : stage 3 (moderate) Qualified Code(s): E11.22 - Type 2 diabetes mellitus with diabetic chronic kidney disease; N18.3 - Chronic kidney disease, stage 3 ( moderate) Comment: continue to monitor creatinine with diuresis (7) Morbid obesity Code(s): E66.01 - MORBID (SEVERE) OBESITY DUE TO EXCESS CALORIES Status: Chronic (8) Physical deconditioning Code(s): R53.81 - OTHER MALAISE Status: Chronic Comment: PT/OT, patient may need to go back to rehab. (9) Pleural effusion Code(s): J90 - PLEURAL EFFUSION, NOT ELSEWHERE CLASSIFIED Status: Acute (10) Pulmonary hypertension Code(s): I27.20 - PULMONARY HYPERTENSION, UNSPECIFIED Status: Acute - Plan cont current plan of care, PT/OT, manager social * .
[2018-03-01] MEDS: Simvastatin 20 MG TAB PO SCH (21:27)
[2018-03-02 05:21] LABS: Anion Gap 15 mmol/L (10-20); BUN (Urea Nitrogen) 26 mg/dL (8.4-25.7); Calc. Creatinine Clearance 67 mL/min (70-130); Calcium 9.3 mg/dL (7.8-10.44); Carbon Dioxide 37 mmol/L (23-31); Chloride 89 mmol/L (98-107); Estimated GFR-MDRD 42; Glucose 106 mg/dL (80-115); Potassium 3.4 mmol/L (3.5-5.1); Sodium 138 mmol/L (136-145)
[2018-03-02] MEDS: Furosemide 100 MG/10 ML VIAL SLOW IVP SCH ×2 (06:19→14:39)
[2018-03-02] MEDS: Apixaban 5 MG TAB PO SCH ×2 (08:59→21:24)
[2018-03-02] MEDS: Amiodarone 200 MG TAB PO SCH (08:59)
[2018-03-02] MEDS: Metolazone 5 MG TAB PO SCH (08:59)
[2018-03-02] MEDS: Multivitamin W/ Minerals 1 TAB PO SCH (09:00)
[2018-03-02] MEDS: Famotidine 20 MG TAB PO SCH ×2 (09:00→21:25)
[2018-03-02] MEDS: Isosorbide Dinitrate 20 MG TAB PO SCH ×3 (09:00→21:24)
[2018-03-02] MEDS: Finasteride 5 MG TAB PO SCH (09:01)
[2018-03-02] MEDS: Lisinopril 5 MG TAB PO SCH ×2 (09:01→21:25)
[2018-03-02] MEDS: Carvedilol 6.25 MG TAB PO SCH ×2 (09:01→21:25)
[2018-03-02] MEDS: Senokot S 8.6-50 MG TAB PO SCH ×2 (09:02→21:26)
[2018-03-02] MEDS: hydrALAZINE 25 MG TAB PO SCH ×3 (09:02→21:24)
[2018-03-02] MEDS: Insulin Glargine 10 UNITS in Pre-Filled Syringe 1 EACH SC SCH (09:03)
[2018-03-02 11:26] LABS: Actual Bicarbonate (HCO3a) 41.3 mEq/L (22-28); Analyzer IN Cardio OR; Base Excess (BEa) 12.7 mEq/L (-2.0 to +3.0); Calcium, Ionized 1.17 mmol/L (1.12-1.30); Carboxyhemoglobin (COHb) 1.4 gm% (0.0-3.0); Hemoglobin (Hb) 11.4 g/dL (14.0-18.0); O2 Tension (PaO2) 84.7 mmHg (> 80.0); Potassium - ABG Lab 3.05 mmol/L (3.70-5.30); pH, Arterial 7.34 (7.35-7.45)
[2018-03-02 11:28] LABS: ALV-art Gradient 17.565 (0-20); CO2 Tension 77.9 mmHg (35.0-45.0); Puncture Site RRA
--- NOTE | 2018-03-02 11:46 | PDOC.PN ---
- Subjective Encounter Start Date: 03/02/18 Encounter Start Time: 11:44 Subjective: Feeling SOB - Objective Resuscitation Status - Order Detail: 02/22/18 13:45 Resuscitation Status Routine Resuscitation Status: FULL: Full Resuscitation MAR Reviewed: Yes Vital Signs & Weight: Vital Signs (12 hours) Temp Pulse Resp BP BP Pulse Ox 03/02/18 10:37 97.6 F 66 18 122/71 98 03/02/18 09:24 99 03/02/18 09:02 76 154/82 H 03/02/18 09:01 76 154/82 H 03/02/18 08:57 69 24 H 99 03/02/18 08:45 81 L 03/02/18 08:30 97.8 F 76 18 154/82 H 95 03/02/18 04:00 97.9 F 60 20 134/71 92 L 03/02/18 00:00 94 L 03/01/18 23:50 70 20 92 L Weight Weight 277 lb 8 oz I&O: 03/01/18 03/02/18 03/03/18 06:59 06:59 06:59 Intake Total 1000 1050 Balance 1000 1050 Result Diagrams: 02/28/18 21:57 03/02/18 04:24 Additional Labs: Accuchecks 03/02/18 03/02/18 03/01/18 10:37 05:45 20:43 POC Glucose 144 H 103 129 H 03/01/18 17:24 POC Glucose 121 H Phys Exam - Physical Examination HEENT: PERRLA, moist MMs, sclera anicteric, TM's clear, oral pharynx no lesions , 2+ tonsils Neck: no nodes, no JVD, supple, full ROM +coarse breath sounds Cardiovascular: no significant murmur, irregular Gastrointestinal: soft, non-tender, no distention, positive bowel sounds Musculoskeletal: edema present Neurological: non-focal, normal sensation, moves all 4 limbs Psychiatric: normal affect, A&O x 3 Dx/Plan (1) Acute exacerbation of CHF (congestive heart failure) Code(s): I50.9 - HEART FAILURE, UNSPECIFIED Status: Acute Qualifiers: Heart failure type: systolic Qualified Code(s): I50.23 - Acute on chronic systolic (congestive) heart failure Comment: Continue lasix, monitor for raising creatinine (2) H/O deep venous thrombosis Code(s): Z86.718 - PERSONAL HISTORY OF OTHER VENOUS THROMBOSIS AND EMBOLISM Status: Acute Comment: continue AC (3) Hypertension, uncontrolled Code(s): I10 - ESSENTIAL (PRIMARY) HYPERTENSION Status: Acute Comment: CONTINUE HOME MEDS (4) Afib Code(s): I48.91 - UNSPECIFIED ATRIAL FIBRILLATION Status: Chronic Qualifiers: Atrial fibrillation type: paroxysmal Qualified Code(s): I48.0 - Paroxysmal atrial fibrillation (5) CKD (chronic kidney disease) stage 3, GFR 30-59 ml/min Code(s): N18.3 - CHRONIC KIDNEY DISEASE, STAGE 3 (MODERATE) Status: Chronic (6) DM type 2 (diabetes mellitus, type 2) Status: Chronic Qualifiers: Diabetes mellitus inspection manager insulin use: without inspection manager use Diabetes mellitus complication status: with kidney complications Diabetes mellitus complication detail: with chronic kidney disease Chronic kidney disease stage : stage 3 (moderate) Qualified Code(s): E11.22 - Type 2 diabetes mellitus with diabetic chronic kidney disease; N18.3 - Chronic kidney disease, stage 3 ( moderate) Comment: continue to monitor creatinine with diuresis (7) Morbid obesity Code(s): E66.01 - MORBID (SEVERE) OBESITY DUE TO EXCESS CALORIES Status: Chronic (8) Physical deconditioning Code(s): R53.81 - OTHER MALAISE Status: Chronic Comment: PT/OT, patient may need to go back to rehab. (9) Pleural effusion Code(s): J90 - PLEURAL EFFUSION, NOT ELSEWHERE CLASSIFIED Status: Acute (10) Pulmonary hypertension Code(s): I27.20 - PULMONARY HYPERTENSION, UNSPECIFIED Status: Acute - Plan * .
--- NOTE | 2018-03-02 16:19 | RAD ---
PORTABLE CHEST: 03/02/18 HISTORY: Congestive heart failure. COMPARISON: 03/01/13 exam. Heart size is enlarged. Postop sternotomy changes and defibrillator device are present. Pulmonary ves sels are engorged with increased perihilar lung markings and bilateral effusions, right larger than l eft. IMPRESSION: Essentially stable exam. POS: [facility]
[2018-03-02] MEDS: Simvastatin 20 MG TAB PO SCH (21:25)
[2018-03-02 23:31] LABS: Hemoglobin 11.5 g/dL (14.0-18.0); Platelet Count 159 thou/uL (130-400)
[2018-03-03] MEDS: Furosemide 100 MG/10 ML VIAL SLOW IVP SCH ×2 (05:38→15:19)
[2018-03-03 05:56] LABS: Anion Gap 21 mmol/L (10-20); BUN (Urea Nitrogen) 25 mg/dL (8.4-25.7); Calc. Creatinine Clearance 66 mL/min (70-130); Calcium 9.7 mg/dL (7.8-10.44); Carbon Dioxide 34 mmol/L (23-31); Chloride 88 mmol/L (98-107); Estimated GFR-MDRD 43; Glucose 140 mg/dL (80-115); Potassium 3.8 mmol/L (3.5-5.1); Sodium 139 mmol/L (136-145)
[2018-03-03] MEDS: Metolazone 5 MG TAB PO SCH (08:50)
[2018-03-03] MEDS: Apixaban 5 MG TAB PO SCH ×2 (08:50→20:09)
[2018-03-03] MEDS: Multivitamin W/ Minerals 1 TAB PO SCH (08:50)
[2018-03-03] MEDS: Insulin Glargine 10 UNITS in Pre-Filled Syringe 1 EACH SC SCH (08:50)
[2018-03-03] MEDS: Isosorbide Dinitrate 20 MG TAB PO SCH ×3 (08:51→20:08)
[2018-03-03] MEDS: Amiodarone 200 MG TAB PO SCH (08:51)
[2018-03-03] MEDS: Senokot S 8.6-50 MG TAB PO SCH ×2 (08:51→20:11)
[2018-03-03] MEDS: Finasteride 5 MG TAB PO SCH (08:51)
[2018-03-03] MEDS: Famotidine 20 MG TAB PO SCH ×2 (08:51→20:11)
[2018-03-03] MEDS: hydrALAZINE 25 MG TAB PO SCH ×3 (08:51→20:09)
[2018-03-03] MEDS: Lisinopril 5 MG TAB PO SCH ×2 (08:52→20:10)
[2018-03-03] MEDS: Carvedilol 6.25 MG TAB PO SCH ×2 (08:52→20:12)
--- NOTE | 2018-03-03 11:18 | PRG ---
DATE OF SERVICE: 03/02/2018 SUBJECTIVE: This morning, he was having difficulty breathing. He was hypoxemic hevwae onnoninvasive ventilation. ,but off now OBJECTIVE: VITAL SIGNS: Sats are 96% on 2 l_ temperature 97, and blood pressure 122/71. CHEST: Decreased breath sounds without any wheezing. CARDIAC: Normal S1 and S2. No gallop. ABDOMEN: No masses. LABORATORY DATA: Creatinine is 1.92. PO2 was 84, pCO2 78 ph7.32____ IMPRESSION: 1. Acute on chronic respiratory failure. 2. Marked CO2 retention. 3. deconditoning 4. Congestive heart failure. 5. Bilateral pleural effusion. PLAN: Discussed with ongoing primary care physician. His effusion is too small to do a thoracentesis at this stage. Continue aggressive neb treatments, supportive care, neb treatmentsand steroids. Job ID: [id number] [facility]
[2018-03-03] MEDS: HumaLOG 300 UNITS/3 ML VIAL SC PRN ×3 (12:16→21:57)
--- NOTE | 2018-03-03 12:29 | PRG ---
DATE OF SERVICE: 03/03/2018 SUBJECTIVE: This morning, he says he is much better. OBJECTIVE: VITAL SIGNS: Sats are 92% on 2 L, respiratory rate 22, blood pressure is 161/83, and pulse 69. CHEST: Decreased breath sounds bilaterally without any wheezing bilateral crackles. CARDIAC: Normal S1, S2. No gallops. ABDOMEN: No masses. DIAGNOSTIC DATA: X-ray shows bilateral pleural effusion. Creatinine is 1.8. IMPRESSION: 1. Bilateral pleural effusion secondary to congestive cardiomyopathy. 2. Renal failure. 3. Probably sleep apnea. He was started on aggressive neb treatment and steroids, to which he is much improved. 4. At this stage, no need to do a thoracentesis. If he becomes more dyspneic, pleural effusion increases, consider therapeutic tap at that time. Job ID: [id number] [facility]
--- NOTE | 2018-03-03 13:22 | PDOC.PN ---
- Subjective Encounter Start Date: 03/03/18 Encounter Start Time: 13:19 Subjective: feeling better - Objective Resuscitation Status - Order Detail: 02/22/18 13:45 Resuscitation Status Routine Resuscitation Status: FULL: Full Resuscitation MAR Reviewed: Yes Vital Signs & Weight: Vital Signs (12 hours) Temp Pulse Resp BP BP Pulse Ox 03/03/18 12:00 96.0 F L 60 16 100 03/03/18 11:00 131/71 03/03/18 10:37 69 22 H 92 L 03/03/18 08:52 72 161/83 H 03/03/18 08:51 72 161/83 H 03/03/18 08:01 68 22 H 03/03/18 08:00 96.6 F L 72 16 97 03/03/18 04:00 97.6 F 70 18 164/85 H 98 03/03/18 02:26 65 20 94 L Weight Weight 273 lb 11.2 oz I&O: 03/02/18 03/03/18 03/04/18 06:59 06:59 06:59 Intake Total 1050 1200 180 Output Total 1 Balance 1050 1199 180 Result Diagrams: 03/02/18 23:15 03/03/18 04:48 Additional Labs: Accuchecks 03/03/18 03/03/18 03/02/18 10:44 06:36 20:48 POC Glucose 207 H 141 H 159 H 03/02/18 16:48 POC Glucose 158 H Phys Exam - Physical Examination HEENT: PERRLA, moist MMs, sclera anicteric, TM's clear, oral pharynx no lesions , 2+ tonsils Neck: no nodes, no JVD Respiratory: no wheezing some coarse breath sounds Cardiovascular: irregular Gastrointestinal: soft, non-tender, no distention Musculoskeletal: edema present Neurological: non-focal, normal sensation, moves all 4 limbs Deviation from normal: oriented X 2 Deviation from normal: extensive venostasis changes to LE Dx/Plan (1) Acute exacerbation of CHF (congestive heart failure) Code(s): I50.9 - HEART FAILURE, UNSPECIFIED Status: Acute Qualifiers: Heart failure type: systolic Qualified Code(s): I50.23 - Acute on chronic systolic (congestive) heart failure Comment: RESPONDING WELL TO LASIX and creatinine slowly trending down. Patient down 25+ fluid pounds. Continues to be deconditioned (2) H/O deep venous thrombosis Code(s): Z86.718 - PERSONAL HISTORY OF OTHER VENOUS THROMBOSIS AND EMBOLISM Status: Acute Comment: continue AC (3) Hypertension, uncontrolled Code(s): I10 - ESSENTIAL (PRIMARY) HYPERTENSION Status: Acute Comment: CONTINUE HOME MEDS (4) Afib Code(s): I48.91 - UNSPECIFIED ATRIAL FIBRILLATION Status: Chronic Qualifiers: Atrial fibrillation type: paroxysmal Qualified Code(s): I48.0 - Paroxysmal atrial fibrillation (5) CKD (chronic kidney disease) stage 3, GFR 30-59 ml/min Code(s): N18.3 - CHRONIC KIDNEY DISEASE, STAGE 3 (MODERATE) Status: Chronic (6) DM type 2 (diabetes mellitus, type 2) Status: Chronic Qualifiers: Diabetes mellitus termite helper insulin use: without custodial use Diabetes mellitus complication status: with kidney complications Diabetes mellitus complication detail: with chronic kidney disease Chronic kidney disease stage : stage 4 (severe) Qualified Code(s): E11.22 - Type 2 diabetes mellitus with diabetic chronic kidney disease; N18.4 - Chronic kidney disease, stage 4 (severe ) Comment: continue to monitor creatinine with diuresis (7) Morbid obesity Code(s): E66.01 - MORBID (SEVERE) OBESITY DUE TO EXCESS CALORIES Status: Chronic (8) Physical deconditioning Code(s): R53.81 - OTHER MALAISE Status: Chronic Comment: PT/OT, patient may need to go back to rehab. (9) Pleural effusion Code(s): J90 - PLEURAL EFFUSION, NOT ELSEWHERE CLASSIFIED Status: Acute (10) Pulmonary hypertension Code(s): I27.20 - PULMONARY HYPERTENSION, UNSPECIFIED Status: Acute - Plan cont current plan of care, erwin catheter, PT/OT, social work job titles, DVT proph w/ SCDs * .
[2018-03-03] MEDS: Simvastatin 20 MG TAB PO SCH (20:11)
[2018-03-04 05:39] LABS: BUN (Urea Nitrogen) 32 mg/dL (8.4-25.7); Calc. Creatinine Clearance 56 mL/min (70-130); Calcium 9.3 mg/dL (7.8-10.44); Estimated GFR-MDRD 37; Glucose 173 mg/dL (80-115)
[2018-03-04] MEDS: Furosemide 100 MG/10 ML VIAL SLOW IVP SCH ×2 (05:47→15:37)
[2018-03-04 05:48] LABS: Anion Gap 17 mmol/L (10-20); Carbon Dioxide 36 mmol/L (23-31); Chloride 84 mmol/L (98-107); Potassium 3.4 mmol/L (3.5-5.1); Sodium 134 mmol/L (136-145)
[2018-03-04] MEDS: Insulin Glargine 10 UNITS in Pre-Filled Syringe 1 EACH SC SCH (08:32)
[2018-03-04] MEDS: Isosorbide Dinitrate 20 MG TAB PO SCH ×2 (08:33→15:38)
[2018-03-04] MEDS: Senokot S 8.6-50 MG TAB PO SCH (08:33)
[2018-03-04] MEDS: hydrALAZINE 25 MG TAB PO SCH ×3 (08:33→15:37)
[2018-03-04] MEDS: Famotidine 20 MG TAB PO SCH (08:33)
[2018-03-04] MEDS: Multivitamin W/ Minerals 1 TAB PO SCH (08:33)
[2018-03-04] MEDS: Apixaban 5 MG TAB PO SCH (08:33)
[2018-03-04] MEDS: Carvedilol 6.25 MG TAB PO SCH (08:34)
[2018-03-04] MEDS: Amiodarone 200 MG TAB PO SCH (08:34)
[2018-03-04] MEDS: Finasteride 5 MG TAB PO SCH (08:34)
[2018-03-04] MEDS: Metolazone 5 MG TAB PO SCH (08:34)
[2018-03-04] MEDS: Lisinopril 5 MG TAB PO SCH (08:34)
[2018-03-04] MEDS ORDERED: Potassium Chloride 20 MEQ TAB PO SCH (09:00)
[2018-03-04] MEDS: HumaLOG 300 UNITS/3 ML VIAL SC PRN (11:30)
[2018-03-04 14:17] VITALS: BMI 35.3
[2018-03-04 15:41] VITALS: BP 128/74; TEMP 98
--- NOTE | 2018-03-04 15:52 | DIS ---
DATE OF ADMISSION: 02/22/2018 DATE OF DISCHARGE: 03/04/2018 ADMISSION DIAGNOSES: 1. Acute on chronic systolic congestive heart failure. 2. History of deep venous thrombosis. 3. Hypertension. 4. Atrial fibrillation. 5. Chronic kidney disease. 6. Diabetes. 7. Morbid obesity. 8. Sleep apnea. 9. Physical deconditioning. 10. Pulmonary hypertension. DISCHARGE DIAGNOSES: 1. Acute on chronic systolic heart failure. 2. History of deep venous thrombosis. 3. Hypertension. 4. Atrial fibrillation. 5. Chronic kidney disease. 6. Diabetes. 7. Morbid obesity. 8. Physical deconditioning. 9. Pleural effusion. 10. Pulmonary hypertension. 11. Sleep apnea. HISTORY OF PRESENTING ILLNESS: The patient was admitted for increasing shortness of breath and anasarca. The patient was aggressively diuresed with IV Lasix, for which the patient responded and he has had fluid net negative weight loss of more than 25 pounds. The patient's kidney function improved slowly as his hemodynamics improved with diuresis. The patient also required nasal cannula oxygen support during the day and CPAP during the night with a history of sleep apnea. After aggressive diuresis, the patient's daytime oxygen requirement went down. But, the patient continues to be deconditioned with requiring maximal assist even to move to the bedside chair, which the patient absolutely does not tolerate. The echo while here revealed severe pulmonary hypertension with some pleural effusion and reduced systolic functions with an ejection fraction of 40% to 50%. The patient also has severe tricuspid regurgitation on his echo. After aggressive diuresis and loss of 25 pounds of fluid weight, the patient started breathing better and was discharged back to his custodial with instruction to follow up with his primary care physician. DISCHARGE MEDICATIONS: 1. Apixaban 5 mg p.o. b.i.d. 2. Carvedilol 6.25 mg p.o. b.i.d. 3. Proscar 5 mg p.o. daily. 4. Furosemide 40 mg p.o. b.i.d. 5. Hydralazine 50 mg p.o. t.i.d. 6. Lantus 10 units subcu q.a.m. 7. Isordil 20 mg p.o. t.i.d. 8. Lisinopril 5 mg p.o. b.i.d. 9. Potassium 20 mEq p.o. daily. 10. Simvastatin 20 mg p.o. at bedtime. DISCHARGE INSTRUCTIONS: 1. Please take medications as instructed. 2. Heart healthy, diabetic diet with fluid restriction of 1500 mL per day. 3. Take medications as prescribed. 4. 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 5. Activity as tolerated, PT and OT requested. Job ID: [id number]
--- NOTE | 2018-03-04 18:52 | PRG ---
DATE OF SERVICE: 03/04/2018 SERVICE: Pulmonary Medicine. INTERVAL HISTORY: The patient is doing fine from respiratory standpoint. Breathing comfortably. He is on room air. He does not have any cough or shortness of breath. He has no chest discomfort. PHYSICAL EXAMINATION: VITAL SIGNS: Afebrile. Pulse 67, blood pressure 128/74, respirations 19, and saturation 92% on room air. GENERAL: The patient is awake, alert, in no apparent distress. LUNGS: Decent air entry. No prolonged expiratory phase, wheezing, rhonchi, or crackles. HEART: Normal rate, regular. ABDOMEN: Soft, nontender, and nondistended. Bowel sounds are positive. MUSCULOSKELETAL: No cyanosis or clubbing. There is no pitting in the bilateral lower extremities. NEUROLOGIC: Grossly nonfocal. LABORATORY DATA: Creatinine 2.18, which is roughly stable, BUN 32. Potassium 3.4. Basic metabolic profile is otherwise unremarkable. Blood sugar ranges from 150 to 256. ASSESSMENT: 1. Acute on chronic systolic and diastolic heart failure, returned to euvolemia. 2. Acute hypoxic respiratory failure, resolved. 3. Bilateral pleural effusions, secondary to heart disease. 4. Obstructive sleep apnea, suspected. DISCUSSION AND PLAN: The patient should have a repeat chest x-ray in 4 to 6 weeks in the outpatient setting to verify the infiltrate is resolved. If the patient remains inhouse, we will continue to follow, but from my perspective, he is stable for transition home today. Job ID: [id number]
== END 2018-03-04 19:35 | DRG 291 ==
LOC: ERS 08:43 → 2NO 11:51
PROVIDERS: ADMIT Internal Medicine; ATTEND Internal Medicine
DX: I13.0 Hypertensive heart and chronic kidney disease with heart failure and stage 1 through stage 4 chronic kidney disease, or unspecified chronic kidney disease (principal); I50.23 Acute on chronic systolic (congestive) heart failure; J96.20 Acute and chronic respiratory failure, unspecified whether with hypoxia or hypercapnia; E66.01 Morbid (severe) obesity due to excess calories; Z68.35 Body mass index [BMI] 35.0-35.9, adult; E78.5 Hyperlipidemia, unspecified; M10.9 Gout, unspecified; N40.0 Benign prostatic hyperplasia without lower urinary tract symptoms; G47.33 Obstructive sleep apnea (adult) (pediatric); E11.22 Type 2 diabetes mellitus with diabetic chronic kidney disease; N18.3 Chronic kidney disease, stage 3 (moderate); I27.20 Pulmonary hypertension, unspecified; I48.0 Paroxysmal atrial fibrillation; I25.5 Ischemic cardiomyopathy; I07.1 Rheumatic tricuspid insufficiency; Z79.4 Long term (current) use of insulin; I25.2 Old myocardial infarction; Z86.718 Personal history of other venous thrombosis and embolism; Z90.49 Acquired absence of other specified parts of digestive tract; Z95.810 Presence of automatic (implantable) cardiac defibrillator; Z95.1 Presence of aortocoronary bypass graft
CPT/HCPCS: 36415; 36416; 71045; 80048; 80053; 82805; 83880; 84443; 84484; 85014; 85018; 85025; 85049; 93005; 93306; 93798; 94640; 94660; 96374; 96375; G8981-GP-CM; G8982-GP-CK; G8987-GO-CM; G8988-GO-CJ; J0360; J1940; J2920; J2930; J7620

== ENCOUNTER 2018-03-05 09:30 | Emergency (ER) | payer MEDICARE ==
[2018-03-05 10:39] LABS: INR-International Normal Ratio 1.3; Prothrombin Time 16.7 SEC (12.0-14.7)
[2018-03-05 10:47] LABS: D-Dimer Test 5.35 *mcg/mL (0.27-0.43)
[2018-03-05 10:52] LABS: ALT (SGPT) 29 U/L (8-55); AST (SGOT) 40 U/L (5-34); Albumin 3.5 g/dL (3.4-4.8); Alkaline Phosphatase 120 U/L (40-150); Anion Gap 17 mmol/L (10-20); BUN (Urea Nitrogen) 36 mg/dL (8.4-25.7); Bilirubin, Total 1.1 mg/dL (0.2-1.2); Calc. Creatinine Clearance 0 mL/min (70-130); Carbon Dioxide 37 mmol/L (23-31); Chloride 83 mmol/L (98-107); Estimated GFR-MDRD 33; Globulin 5.1 g/dL (2.4-3.5); Glucose 151 mg/dL (80-115); Potassium 3.6 mmol/L (3.5-5.1); Protein, Total 8.6 g/dL (5.8-8.1); Sodium 133 mmol/L (136-145)
--- NOTE | 2018-03-05 11:06 | RAD ---
PORTABLE UPRIGHT FRONTAL CHEST: Date: 03/05/18 COMPARISON: 03/02/18. HISTORY: Shortness of breath, dyspnea, hypoxia. FINDINGS: Stable prominence of the cardiac silhouette, midline sternotomy wires, and multilead transvenous AICD . No pneumothorax. Prominent pulmonary vascular congestion again noted with perihilar and bibasilar air space disease, r ight greater than left, as well as bilateral pleural effusions, not significantly changed. IMPRESSION: Stable appearance of the chest as detailed above. Findings suggest pulmonary edema. Superimposed infe ction or aspiration cannot be excluded. POS: [facility]
[2018-03-05 11:21] LABS: Band 9 % (5-11); Hemoglobin 13.9 g/dL (14.0-18.0); Lymphocytes 26 % (21-51); MDiff Complete? YES; Mean Corpuscular HGB CONC 30.8 g/dL (32.0-36.0); Mean Corpuscular Hemoglobin 28.3 pg (27.0-31.0); Mean Corpuscular Volume 91.9 fL (78.0-98.0); Mean Platelet Volume 10.7 fL (7.4-10.4); Monocytes 4 % (0-10); Neutrophil 61 % (42-75); Platelet Count 201 thou/uL (130-400); RBC Distribution Width 15.6 % (11.5-14.5); Red Blood Cell (RBC) Count 4.91 mill/uL (4.70-6.10); White Blood Cell (WBC) Count 6.8 thou/uL (4.8-10.8)
--- NOTE | 2018-03-05 12:53 | CT ---
CT PULMONARY ANGIOGRAM WITH IV CONTRAST AND 3D POSTPROCESSING: Date: 03/05/18 HISTORY: Dyspnea, coronal artery disease. FINDINGS: There is good contrast opacification of the pulmonary arterial vasculature without filling defects to suggest pulmonary embolism. No aneurysm of the thoracic aorta is seen. Moderate left and large right pleural effusions are seen with adjacent consolidation/atelectatic changes. No pneumothoraces are id entified. There is anasarca. There are degenerative changes in the spine. IMPRESSION: 1. No CT evidence of pulmonary embolism. 2. Bilateral pleural effusions, right larger than left. POS: [facility]
[2018-03-05] MEDS ORDERED: Furosemide 40 MG/4 ML VIAL ONE (13:18)
[2018-03-05] MEDS ORDERED: Furosemide 20 MG/2 ML VIAL ONE (13:18)
== END 2018-03-05 14:39 | disposition home or self-care (01) ==
LOC: ERS 09:30
DX: I11.0 Hypertensive heart disease with heart failure (principal); I50.9 Heart failure, unspecified; R09.02 Hypoxemia; M10.9 Gout, unspecified; E11.9 Type 2 diabetes mellitus without complications; J45.909 Unspecified asthma, uncomplicated; E11.39 Type 2 diabetes mellitus with other diabetic ophthalmic complication; H42 Glaucoma in diseases classified elsewhere; Z79.899 Other long term (current) drug therapy
CPT/HCPCS: 36415; 71045; 71275; 80053; 83605; 83880; 85025; 85379; 85610; 85730; 93005; 94640; 94760; 96374; J1940; J7620

== ENCOUNTER 2018-03-20 15:17 | Observation (INO) | payer MEDICARE ==
[2018-03-20 16:29] LABS: #Eosinphils 0.2 thou/uL (0.0-0.7); #Lymphocytes 0.9 thou/uL (1.20-3.40); #Monocytes 0.4 thou/uL (0.11-0.59); #Neutrophils 2.9 thou/uL (1.40-6.50); %Basophils 0.4 % (0.0-1.0); %Eosinophils 4.3 % (0.0-10.0); %Lymphocytes 20.2 % (21.0-51.0); %Monocytes 8.8 % (0.0-10.0); %Neutrophils 66.3 % (42.0-75.0); Hemoglobin 10.4 g/dL (14.0-18.0); Mean Corpuscular HGB CONC 30.9 g/dL (32.0-36.0); Mean Corpuscular Hemoglobin 28.7 pg (27.0-31.0); Mean Corpuscular Volume 92.8 fL (78.0-98.0); Mean Platelet Volume 11.4 fL (7.4-10.4); Platelet Count 122 thou/uL (130-400); RBC Distribution Width 15.5 % (11.5-14.5); Red Blood Cell (RBC) Count 3.64 mill/uL (4.70-6.10); White Blood Cell (WBC) Count 4.3 thou/uL (4.8-10.8)
[2018-03-20 16:43] LABS: Lipase 17 U/L (8-78)
[2018-03-20 16:44] LABS: CK (CPK) 23 U/L (30-200)
[2018-03-20 16:51] LABS: ALT (SGPT) 20 U/L (8-55); AST (SGOT) 23 U/L (5-34); Albumin 3.1 g/dL (3.4-4.8); Alkaline Phosphatase 110 U/L (40-150); BUN (Urea Nitrogen) 38 mg/dL (8.4-25.7); Bilirubin, Total 1.1 mg/dL (0.2-1.2); Calc. Creatinine Clearance 0 mL/min (70-130); Calcium 9.4 mg/dL (7.8-10.44); Estimated GFR-MDRD 43; Glucose 122 mg/dL (80-115); Protein, Total 7.1 g/dL (5.8-8.1)
[2018-03-20 16:55] LABS: Bilirubin Negative (Negative); Blood, Urine Small (Negative); Clarity CLOUDY (Clear); Glucose, Urine (Dipstick) Negative (Negative); Leukocyte Large (Negative); Nitrite Negative (Negative); Protein, Urine (Dipstick) 30 mg/dL (Neg-Trace)
[2018-03-20 16:57] LABS: Bacteria/HPF None Seen HPF (None Seen); Hyaline Casts/LPF 0-3 HYALINE CAST LPF (0-3 Hyaline); Pathc Cast-AUWi Flag 0.29 (0-2.49); RBC/HPF 21-50 HPF (0-3); Squamous Epithelial None Seen HPF (0-3)
[2018-03-20 16:59] LABS: Anion Gap 19 mmol/L (10-20); Carbon Dioxide 33 mmol/L (23-31); Chloride 91 mmol/L (98-107); Potassium 4.3 mmol/L (3.5-5.1); Sodium 139 mmol/L (136-145)
[2018-03-20 17:06] LABS: CKMB 2.9 ng/mL (0-6.6)
--- NOTE | 2018-03-20 17:08 | RAD ---
SINGLE VIEW OF THE CHEST: Comparison: 03-05-18 History: Mental status changes, altered mental status. FINDINGS: Single view of the chest shows an enlarged but stable cardiomediastinal silhouette. The patient is st atus post sternotomy. The pacemaker is unchanged in position. There are small to moderate bilateral p leural effusions, unchanged. IMPRESSION: Cardiomegaly and bilateral pleural effusions. POS: [facility]
[2018-03-20] MEDS ORDERED: Sodium Chloride 0.9% 100 ML ONE (17:32)
[2018-03-20] MEDS ORDERED: cefTRIAXone\\ROCEPHIN 2 GM VIAL ONE (17:32)
[2018-03-20 20:31] LABS: CKMB 2.9 ng/mL (0-6.6)
[2018-03-20] MEDS ORDERED: Ondansetron PF 4 MG/2 ML Vial IVP PRN (21:12)
[2018-03-20] MEDS ORDERED: Ondansetron ODT 4 MG TAB SL PRN (21:12)
[2018-03-20 22:49] VITALS: BMI 33.1
[2018-03-21 00:44] LABS: CKMB 3.1 ng/mL (0-6.6)
[2018-03-21] MEDS ORDERED: Zolpidem Tartrate 5 MG TAB PO PRN (01:32)
[2018-03-21] MEDS ORDERED: Calcium Carbonate 500 MG ChewTAB PO PRN (01:32)
[2018-03-21] MEDS ORDERED: Acetaminophen 325 MG TAB PO PRN ×2 (01:32→01:37)
[2018-03-21] MEDS ORDERED: Senokot S 8.6-50 MG TAB PO PRN (01:32)
[2018-03-21] MEDS ORDERED: Bisacodyl 5 MG TAB PO PRN ×2 (01:32→01:37)
[2018-03-21] MEDS ORDERED: cloNIDine 0.1 MG TAB PO PRN (01:37)
[2018-03-21] MEDS ORDERED: Nitroglycerin 0.4 MG TAB (25 Tab Bottle) SL PRN (01:37)
[2018-03-21] MEDS ORDERED: Sodium Chloride 0.9% 10 ML ONE ×2 (05:40→09:21)
[2018-03-21 06:11] LABS: Eosinophils 5 % (0-10); Hemoglobin 11.4 g/dL (14.0-18.0); Hypochromia SLIGHT = 6-15 cells (100X) (0-5/hpf); Lymphocytes 28 % (21-51); MDiff Complete? YES; Mean Corpuscular HGB CONC 29.7 g/dL (32.0-36.0); Mean Corpuscular Hemoglobin 27.6 pg (27.0-31.0); Mean Platelet Volume 11.7 fL (7.4-10.4); Monocytes 18 % (0-10); Neutrophil 49 % (42-75); Platelet Count 117 thou/uL (130-400); Platelet Morphology Comment Appears Decreased; RBC Distribution Width 15.7 % (11.5-14.5); Red Blood Cell (RBC) Count 4.13 mill/uL (4.70-6.10); Target Cells SLIGHT = 2-5 cells (100X) (0-1/hpf); White Blood Cell (WBC) Count 4.9 thou/uL (4.8-10.8)
[2018-03-21 06:25] LABS: Anion Gap 16 mmol/L (10-20); BUN (Urea Nitrogen) 34 mg/dL (8.4-25.7); Calc. Creatinine Clearance 74 mL/min (70-130); Calcium 9.7 mg/dL (7.8-10.44); Carbon Dioxide 36 mmol/L (23-31); Chloride 94 mmol/L (98-107); Estimated GFR-MDRD 53; Glucose 88 mg/dL (80-115); Magnesium 1.9 mg/dL (1.6-2.6); Potassium 4.3 mmol/L (3.5-5.1); Sodium 142 mmol/L (136-145); Uric Acid 6.7 mg/dL (3.5-7.2)
[2018-03-21] MEDS: Furosemide 40 MG/4 ML VIAL SLOW IVP SCH ×2 (06:46→14:56)
[2018-03-21] MEDS ORDERED: Finasteride 5 MG TAB PO SCH (09:00)
[2018-03-21] MEDS ORDERED: Furosemide 40 MG TAB PO SCH (09:00)
[2018-03-21] MEDS ORDERED: Magnesium Oxide 400 MG TAB PO SCH (09:00)
[2018-03-21] MEDS ORDERED: Senokot S 8.6-50 MG TAB PO SCH (09:00)
[2018-03-21] MEDS ORDERED: Carvedilol 6.25 MG TAB PO SCH (09:00)
[2018-03-21] MEDS ORDERED: Amiodarone 200 MG TAB PO SCH (09:00)
[2018-03-21] MEDS ORDERED: Multivitamin W/ Minerals 1 TAB PO SCH (09:00)
[2018-03-21] MEDS ORDERED: Potassium Chloride 20 MEQ TAB PO SCH (09:00)
[2018-03-21] MEDS ORDERED: Lisinopril 5 MG TAB PO SCH (09:00)
[2018-03-21] MEDS ORDERED: guaiFENesin/DM ER PO SCH (09:00)
[2018-03-21] MEDS ORDERED: Apixaban 5 MG TAB PO SCH (09:00)
[2018-03-21] MEDS ORDERED: traMADol HCl 50 MG TAB PO SCH (09:00)
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
[2018-03-21] MEDS: hydrALAZINE 25 MG TAB PO SCH ×2 (09:27→14:56)
[2018-03-21] MEDS: Isosorbide Dinitrate 20 MG TAB PO SCH ×2 (09:28→14:59)
[2018-03-21] MEDS ORDERED: cefTRIAXone\\ROCEPHIN 1 GM in Sodium Chloride 0.9% 100 ML IVPB SCH (10:30)
--- NOTE | 2018-03-21 16:45 | DIS ---
DATE OF ADMISSION: 03/20/2018 DATE OF DISCHARGE: 03/21/2018 PRIMARY CARE PROVIDER: Dr. Aris Jones. DISCHARGE DIAGNOSES: 1. Acute metabolic encephalopathy. 2. Urinary tract infection. CONDITION OF THE PATIENT ON THE DAY OF DISCHARGE: Stable. I assessed Mr. Ching on the day of discharge. He denies any chest pain or shortness of breath. Vital signs are stable. He is awake, alert, and oriented x3. S1 and S2 are heard, regular. Lungs are clear to auscultation bilaterally. DISCHARGE MEDICATIONS: He is being discharged back to [facility] on ceftriaxone 1 g intravenously for 3 more days. Otherwise, no change was made to his pre-admission home medications as dictated on history and physical note dated March 21, [address] Toscano. HOSPITAL COURSE: Mr. Ching is a pleasant 67-year-old gentleman, who was admitted to [facility] for altered mental status and urinary tract infection on March 20, 2018. Please refer to Dr. Toscano's history and physical note dated March 21, 2018 for further details. Urinalysis was suspicious for urinary tract infection. He did not have any penile discharge at the hospital. Urine cultures were sent. He was treated with empiric ceftriaxone, and acute metabolic encephalopathy, resolved. He is being discharged back to [facility] on intravenous ceftriaxone for 3 more days. His primary care provider is requested to follow up on urine cultures and adjust antibiotics accordingly. Many thanks for allowing me to participate in your patient's care. Please feel free to contact me with any questions or concerns. LABORATORY DATA: On the day of discharge; Mr. Ching has white count 4900, hemoglobin 11.4, platelet count 117,000. Blood urea nitrogen 34 and creatinine 1.57. His creatinine was 1.88 on March 20, 2018. DISCHARGE DESTINATION: [facility] from where the patient was admitted to the hospital. Job ID: [id number]
[2018-03-21 18:13] VITALS: BP 147/79; TEMP 97.2
[2018-03-21] MEDS ORDERED: Latanoprost 0.005% Ophth Soln 2.5 ml Bottle EA EYE SCH (21:00)
== END 2018-03-21 18:16 ==
LOC: ERS 15:17 → 2NO 20:26
PROVIDERS: ADMIT Internal Medicine; ATTEND Internal Medicine
DX: G93.41 Metabolic encephalopathy (principal); N39.0 Urinary tract infection, site not specified; N40.0 Benign prostatic hyperplasia without lower urinary tract symptoms; M10.9 Gout, unspecified; I11.0 Hypertensive heart disease with heart failure; I50.9 Heart failure, unspecified; I48.91 Unspecified atrial fibrillation; I25.10 Atherosclerotic heart disease of native coronary artery without angina pectoris; I25.2 Old myocardial infarction; E11.9 Type 2 diabetes mellitus without complications; E78.5 Hyperlipidemia, unspecified; J45.909 Unspecified asthma, uncomplicated; G47.33 Obstructive sleep apnea (adult) (pediatric); Z79.01 Long term (current) use of anticoagulants; Z79.899 Other long term (current) drug therapy; Z95.810 Presence of automatic (implantable) cardiac defibrillator
CPT/HCPCS: 51701; 71045; 80048; 80053; 82140; 82550; 82553; 82962 ×2; 83690; 83735; 84443; 84484 ×2; 84550; 85025 ×2; 87086; 93005; 94660; 96361 ×2; 96365; 96375; 96376; 99285; G0378 ×2; 36415; 36416; 81003; 81015; J0696; J1940; J7050

== ENCOUNTER 2018-06-19 13:26 | Outpatient (CLI) | payer MEDICARE ==
--- NOTE | 2018-06-19 14:00 | CT ---
EXAM: CT Chest WO Con PROVIDED CLINICAL HISTORY: Pleural effusion. Cough. COMPARISON: 03/05/2018. FINDINGS: There is been interval resolution of the left pleural effusion and consolidation with considerable in terval decrease in size of right pleural effusion and consolidation. There is only trace amount of pl eural fluid at the right lung base on today's exam. Linear peripheral parenchymal changes are seen at the right lung base probably related to minimal atelectasis and/or scarring. Mild linear scarring is also present at the left lung base. There is a 5 mm pleural-based nodular density along the lateral left major fissure (image 39, series 3). This may be related to focal area of nodular pleural thicken ing. No additional discrete parenchymal pulmonary nodule is seen. A triple lead left subclavian AICD device remains in place. Median sternotomy wires are present. A hypodense nodule is seen in the right lobe of thyroid gland measuring 2.5 cm. This is overall stabl e compared to the prior exam, but this area is mostly obscured due to streak artifact on prior study. Degenerative changes are again seen in the spine. There is been no other interval change from the sean or exam. IMPRESSION: 1. Resolution of left pleural effusion with almost complete resolution of right pleural effusion. The re is only a trace right pleural effusion on today's examination with linear areas of scarring versus atelectasis present at each lung base. No areas of consolidation are seen. 2. Hypodense nodule right lobe of the thyroid gland. This is stable compared to the prior exam but be tter visualized on today's exam. Follow-up thyroid ultrasound is recommended for further evaluation. 3. Subcentimeter pleural-based nodule along the major fissure on the left probably related to small f ocal area of nodular pleural thickening.
== END 2018-06-19 13:27 | disposition home or self-care (01) ==
LOC: CT 13:26
PROVIDERS: ATTEND Internal Medicine Pulmonary Disease
DX: J90 Pleural effusion, not elsewhere classified (principal); E04.1 Nontoxic single thyroid nodule; R91.8 Other nonspecific abnormal finding of lung field
CPT/HCPCS: 71250

== ENCOUNTER → 2018-10-04 | Day surgery (SDC) | payer MEDICARE ==
--- NOTE | 2018-10-04 14:05 | ULT ---
EXAM: US Thyroid STANDARD PROVIDED CLINICAL HISTORY: Patient presents for fine-needle aspiration of nodules in the thyroid gland. COMPARISON: None FINDINGS: Multiple sagittal and transverse sonographic images of the thyroid gland are performed. The right lobe of thyroid gland measures 5.8 cm x 3.5 cm x 2.1 cm. There is an anechoic cystic struct ure seen within the inferior pole right lobe of the thyroid gland measuring 2.6 cm in maximal dimensions. This nodule corresponds to findings on CTA chest on 03/05/2018, and has the appearance of a colloid cyst. No additional nodule is seen in the right lobe of the thyroid gland. The left lobe of the thyroid gland measures 4.9 cm x 3.2 cm x 1.9 cm. There is a heterogeneous hypoec hoic nodule seen in the superior pole left lobe of the thyroid gland which measures 1.1 cm x 1 cm x 0.7 cm. No definite calcifications are seen within this nodule, and the margins of the nodule appear smooth. No additional thyroid nodule is seen. IMPRESSION: TI-RADS level 4 nodule in the left lobe of the thyroid gland. According to recent ACR white paper guillaume delines and size criteria, follow-up evaluation is recommended. Follow-up examination can be performed in 6 months. Above findings were discussed with Dr. Borges on 10/04/2018 at 1351 hours.
== END ==
LOC: ULT 12:29
PROVIDERS: ATTEND Internal Medicine
DX: E04.2 Nontoxic multinodular goiter (principal)
CPT/HCPCS: 76536

== ENCOUNTER 2018-12-05 08:08 | Emergency (ER) | payer MEDICARE ==
[2018-12-05 09:10] LABS: #Eosinphils 0.3 thou/uL (0.0-0.7); #Lymphocytes 1.4 thou/uL (1.20-3.40); #Monocytes 0.6 thou/uL (0.11-0.59); %Basophils 0.1 % (0.0-1.0); %Eosinophils 4.8 % (0.0-10.0); %Monocytes 11.7 % (0.0-10.0); %Neutrophils 56.5 % (42.0-75.0); Hemoglobin 9.1 g/dL (14.0-18.0); Mean Corpuscular HGB CONC 31.2 g/dL (32.0-36.0); Mean Corpuscular Hemoglobin 26.4 pg (27.0-31.0); Mean Corpuscular Volume 84.5 fL (78.0-98.0); Platelet Count 175 thou/uL (130-400); RBC Distribution Width 19.1 % (11.5-14.5); Red Blood Cell (RBC) Count 3.45 mill/uL (4.70-6.10); White Blood Cell (WBC) Count 5.3 thou/uL (4.8-10.8)
[2018-12-05 09:22] LABS: ALT (SGPT) 13 U/L (8-55); AST (SGOT) 30 U/L (5-34); Albumin 3.1 g/dL (3.4-4.8); Alkaline Phosphatase 139 U/L (40-110); Anion Gap 11 mmol/L (10-20); BUN (Urea Nitrogen) 28 mg/dL (8.4-25.7); Calc. Creatinine Clearance 0 mL/min (70-130); Calcium 8.7 mg/dL (7.8-10.44); Carbon Dioxide 29 mmol/L (23-31); Chloride 101 mmol/L (98-107); Estimated GFR-MDRD 42; Globulin 5.3 g/dL (2.4-3.5); Potassium 3.7 mmol/L (3.5-5.1); Protein, Total 8.4 g/dL (5.8-8.1); Sodium 137 mmol/L (136-145)
[2018-12-05 09:26] LABS: Glucose 43 mg/dL (80-115)
--- NOTE | 2018-12-05 10:14 | RAD ---
SINGLE VIEW OF THE CHEST: COMPARISON: 03/20/2018. HISTORY: Shortness of breath last night and cough. FINDINGS: A single view of the chest shows an enlarged but stable cardiomediastinal silhouette. The patient is status post sternotomy. The pacemaker is unchanged in position. There is a moderate right pleural effusion and small left pleural effusion. No change has occurred compared to the prior exam. IMPRESSION: Cardiomegaly and bilateral pleural effusions. POS: [facility]
== END 2018-12-05 12:08 ==
LOC: ERS 08:08
DX: E11.649 Type 2 diabetes mellitus with hypoglycemia without coma (principal); N40.0 Benign prostatic hyperplasia without lower urinary tract symptoms; M10.9 Gout, unspecified; I48.91 Unspecified atrial fibrillation; I25.10 Atherosclerotic heart disease of native coronary artery without angina pectoris; I25.2 Old myocardial infarction; E78.5 Hyperlipidemia, unspecified; J45.909 Unspecified asthma, uncomplicated; G47.33 Obstructive sleep apnea (adult) (pediatric); I11.0 Hypertensive heart disease with heart failure; I50.9 Heart failure, unspecified; Z79.899 Other long term (current) drug therapy; Z79.4 Long term (current) use of insulin; Z79.82 Long term (current) use of aspirin
CPT/HCPCS: 36415; 36416; 71045; 80053; 83605; 85025; 93005

== ENCOUNTER 2019-03-16 07:54 | Emergency (ER) | payer MEDICARE ==
[2019-03-16] MEDS ORDERED: Calcium Chloride 1 GM/10 ML Abboject SYRINGE ONE (09:48)
[2019-03-16] MEDS ORDERED: EPINEPHrine 1 MG/ML AMP ONE (09:48)
== END 2019-03-16 08:05 | disposition expired ==
LOC: ERS 07:54
DX: I46.9 Cardiac arrest, cause unspecified (principal); M10.9 Gout, unspecified; I50.9 Heart failure, unspecified; E11.9 Type 2 diabetes mellitus without complications; I11.0 Hypertensive heart disease with heart failure; G47.33 Obstructive sleep apnea (adult) (pediatric); I25.2 Old myocardial infarction; I48.91 Unspecified atrial fibrillation
CPT/HCPCS: 96374; 96375; J0171